=== PATIENT | female | born 1945 | race Caucasian/White ===

== ENCOUNTER 2023-09-20 09:04 | Outpatient (CLI) | payer MEDICARE, BC, SELFPAY ==
--- NOTE | 2023-09-20 09:15 | CRLHL7_ITS ---
For Patients: As a result of the Century Cures Act, medical imaging exams and procedure reports are released immediately into your electronic medical record. You may view this report before your referring provider. If you have questions, please contact your health care provider. INDICATION: Shoulder pain. COMPARISON: None. TECHNIQUE: Axial PD and T2, coronal PD, T2 and STIR and sagittal PD and T2 right shoulder sequences. Some motion degrades provided sequences. FINDINGS: Rotator cuff: Prominent intermediate signal tendinosis and bursal and intersubstance degenerative tearing supraspinatus with potential pinpoint full-thickness non retracted extension of complex tearing. Moderate intermediate signal tendinosis without tearing in the infraspinatus. Intact teres minor. Intact subscapularis. No rotator cuff muscle atrophy or edema. - Acromioclavicular joint and coracoacromial arch: Curved type 2 acromial undersurface with patent acromiohumeral distance. Moderate volume of fluid in the subacromial/subdeltoid bursa. [id number] degenerative arthrosis AC joint. No clavicular dislocation or fracture. Subcoracoid interval is patent. - Biceps labral complex: Labral signal and morphology looks within normal limits. Intact biceps anchor and appropriately located biceps tendon. Physiologic upper normal fluid in the tendon sheath. - Glenohumeral joint: Anatomic alignment. Shallow grade 2 chondromalacia. No secondary degenerative change. Upper normal physiologic fluid in the joint. No capsulitis, intra-articular body or significant synovitis. Some minor strandy synovitis in the subscapular recess. - Bones and soft tissues: Deltoid bulk and signal is normal. No fracture or bone lesion. Neutral glenoid version with normal morphology and good bone quality. Visualized axilla is clear. IMPRESSION: 1. Prominent tendinopathy and non retracted probably up to full-thickness complex degenerative tearing supraspinatus. Moderate tendinosis infraspinatus. 2. Subacromial/subdeltoid bursitis. 3. Mild AC DJD. Dictated by Darion Hoffman MD @ 09/20/2023 4:03:25 PM (Electronically Signed)
== END 2023-09-20 09:05 | disposition home or self-care (01) ==
PROVIDERS: PCP Family Medicine; Visit Provider Orthopaedic Surgery
DX: M25.511 Pain in right shoulder (principal); M75.51 Bursitis of right shoulder; M19.011 Primary osteoarthritis, right shoulder; M75.101 Unspecified rotator cuff tear or rupture of right shoulder, not specified as traumatic
CPT/HCPCS: 73221

== ENCOUNTER 2023-10-11 15:00 | Outpatient (RCR) | payer MEDICARE, BC, SELFPAY | END 2024-02-08 23:59 | disposition home or self-care (01) | PROVIDERS: PCP Family Medicine; Visit Provider Orthopaedic Surgery | DX: Z48.89 Encounter for other specified surgical aftercare (principal); Z51.89 Encounter for other specified aftercare | CPT/HCPCS: 97110; 97140; 97165; X5282 ==

== ENCOUNTER 2024-02-25 10:13 | Emergency (ER) | payer MEDICARE, BC, SELFPAY ==
[2024-02-25] VITALS (14 sets, daily range): BP systolic 107–176; BP diastolic 42–78; PULSE 39–53; RESP 12–18; TEMP 36.3; O2SAT 88–100; BMI 27.7
--- NOTE | 2024-02-25 10:57 | ED.GENADULT ---
HPI - General Adult General Date Seen: 02/25/24 Chief complaint: Abdominal Pain Stated complaint: poss bladder infection Time Seen by Provider: 02/25/24 10:21 Source: patient, RN notes reviewed and old records reviewed Mode of arrival: ambulatory Limitations: no limitations History of Present Illness HPI narrative: The patient is a 78-year-old woman here with her for evaluation of possible urinary tract infection. She notes that she was awakened this morning with a burning sensation in her labia. She has since developed right lower quadrant pain, nausea and has vomited once at home, had dry heaves here. The abdominal pain has gradually worsened. She actually does not report dysuria. She does not have flank pain. Denies history of hematuria or kidney stones. She had a meningioma resected a month ago and has some persistent diplopia which is unchanged. She is on iron replacement which cause some constipation so she takes stool softeners. She says her stools are soft to the point of almost diarrhea, but she does go regularly. Denies bloody stools. No abdominal surgeries aside from C-sections. She does not smoke or drink. Denies allergies. Medications reviewed. Related Data Home Medications Medication Instructions Recorded Confirmed ferrous gluconate 324 mg (38 mg 324 mg PO DAILY 02/25/24 02/25/24 iron) tablet lacosamide 100 mg tablet 100 mg PO BID 02/25/24 02/25/24 levetiracetam 750 mg tablet 1,500 mg PO BID 02/25/24 02/25/24 sennosides 8.6 mg tablet (senna) 8.6 mg PO BID 02/25/24 02/25/24 Allergies Allergy/AdvReac Type Severity Reaction Status Date / Time No Known Drug Allergies Allergy Verified 02/25/24 12:09 Review of Systems Status of ROS: Reports: 10 or more systems reviewed and unremarkable except as noted in History and below [facility] Social History Non-prescribed substance use: denies use Exam Narrative: Exam Narrative: Vital signs as noted above. In general, an alert, nontoxic woman. She looks uncomfortable. Head: Normocephalic, atraumatic. Healed incision, hair is not completely grown back. Eyes: Pupils are equal reactive. Conjunctivae are normal. ENT: Mucous membranes are moist. Neck: Supple without lymphadenopathy. Heart: Regular rate and rhythm. No murmur or rub. Lungs: Clear bilaterally. No increased work of breathing, crackles or wheezes. Abdomen: Soft, nondistended. Focal right lower quadrant and right mid quadrant tenderness without rebound guarding or read it the. No CVA tenderness Extremities: Well perfused. No edema. No calf tenderness. Pulses intact. Neurologic: Patient is alert and oriented to person and place. Speech is fluent. Face is symmetric. Moves all extremities equally. Affect: Normal. Skin: Warm and dry. Well perfused. Const: Vital Signs, click to edit/add: Vital Signs - 24 hr 02/25/24 10:29 02/25/24 11:19 02/25/24 11:30 Temperature 97.3 F L Pulse Rate 39 L 46 L Pulse Rate [Pulse Oximeter] 45 L Respiratory Rate 18 12 Blood Pressure Blood Pressure [Ri ght Upper Arm] 176/78 H Pulse Oximetry 99 100 100 Oxygen Delivery Me thod Room Air Nasal Cannula Oxygen Flow Rate 2 2 02/25/24 11:45 02/25/24 12:07 02/25/24 12:08 Temperature Pulse Rate 50 L Pulse Rate [Pulse Oximeter] Respiratory Rate Blood Pressure Blood Pressure [Ri ght Upper Arm] Pulse Oximetry 98 88 Oxygen Delivery Me thod Room Air Nasal Cannula Oxygen Flow Rate 2 2 02/25/24 12:12 02/25/24 12:15 02/25/24 12:30 Temperature Pulse Rate 51 L 43 L 47 L Pulse Rate [Pulse Oximeter] Respiratory Rate Blood Pressure Blood Pressure [Ri ght Upper Arm] Pulse Oximetry 93 100 100 Oxygen Delivery Me thod Oxygen Flow Rate 2 2 2 02/25/24 12:45 02/25/24 12:48 02/25/24 12:49 Temperature Pulse Rate 48 L 53 L 48 L Pulse Rate [Pulse Oximeter] Respiratory Rate Blood Pressure 111/42 L Blood Pressure [Ri ght Upper Arm] Pulse Oximetry 96 99 99 Oxygen Delivery Me thod Oxygen Flow Rate 1 02/25/24 13:00 02/25/24 13:01 02/25/24 13:15 Temperature Pulse Rate 48 L 44 L 44 L Pulse Rate [Pulse Oximeter] Respiratory Rate Blood Pressure 107/42 L Blood Pressure [Ri ght Upper Arm] Pulse Oximetry 97 99 98 Oxygen Delivery Me thod Room Air Room Air Oxygen Flow Rate Documenting provider has reviewed patient's vital signs: yes Course Course ED Course: Patient presents with some labial pain without dysuria, right lower quadrant pain, vomiting. Vital signs here show her to be afebrile, she is bradycardic, hypertensive. Diagnostic considerations include kidney stone, urinary tract infection, pyelonephritis, appendicitis, diverticulitis, bowel obstruction, cholecystitis, biliary colic, pancreatitis among others. She does have abdominal tenderness, more so than I would generally expect for kidney stone, plan will be to place an IV, give 4 mg of morphine, 4 mg of Zofran for pain and nausea. Normal saline infusion. If she has significant isolated hematuria on UA, I think a noncontrast CT would be reasonable, otherwise, CT with contrast will be ordered. Labs pending. UA was entirely negative, I elected to do CT scan with contrast as result. Labs notable for normal white blood cell count, hemoglobin of 11.8, normal metabolic panel, creatinine of 0.6, lactate 0.8. CRP less than 0.5, normal LFTs and lipase. CT scan read by radiology as follows:FINDINGS: Lower chest: The heart is enlarged. 6 millimeter left lower lobe pulmonary nodule on 12/30. Basilar atelectasis. Liver: Normal in size and attenuation. No suspicious masses. Gallbladder and bile ducts: No stones or inflammation. No biliary dilatation. Pancreas: Unremarkable. No mass or inflammation. Spleen: Normal in size. No masses. Adrenal glands: Normal in size. No nodules. Kidneys: Numerous too small to characterize tiny low-attenuation lesions kidneys nonobstructing bilateral renal calculi. No hydronephrosis on left. There is mild right hydronephrosis urothelial thickening with mild dilatation of the right ureter. There is a slight soft tissue density near the region of the right UVJ with also a punctate density which may represent a small stone however a soft tissue process is not completely excluded. This is seen on 12/22 25 and GI tract: Large amount of stool in the colon diverticulosis normal appendix. Vasculature: Abdominal aorta is normal in caliber. Lymph nodes: No lymphadenopathy. Peritoneum/Abdominal Wall: Unremarkable. No sign of mass or infiltration. No free air or significant free fluid. Pelvis: Unremarkable. No pelvic masses. Bones: Unremarkable for age. IMPRESSION: 1. Mild right hydronephrosis with urothelial thickening. Near the region of the right UVJ is a small soft tissue density and also possibly a punctate calcification potentially this could be related to a subtle stone however a soft tissue process is not completely excluded consider urology consultation. I did speak briefly with Urology on-call through [facility], he felt that outpatient follow-up for this would be reasonable. Will have her strain urine, maintain hydration. Tylenol 3 times daily, I am prescribing oxycodone #10. As well as Zofran through [facility]. At this time she is feeling well, there is no evidence of urinary tract infection, pain is controlled. Outpatient management unless she develops new symptoms such as fever, vomiting, severe uncontrolled pain at which time she should return to the ER. Given the phone number for [facility]. Vital Signs Vital signs: Initial Vital Signs Temperature 97.3 F L 02/25/24 10:29 Temperature Source Temporal Artery Scan 02/25/24 10:29 Pulse Rate 45 L 02/25/24 10:29 Respiratory Rate 18 02/25/24 10:29 Blood Pressure 176/78 H 02/25/24 10:29 Blood Pressure Mean 110 H 02/25/24 10:29 Pulse Oximetry 99 02/25/24 10:29 Oxygen Delivery Method Room Air 02/25/24 10:29 Vital Signs Temperature 97.3 F L 02/25/24 10:29 Pulse Rate 45 L 02/25/24 10:29 Respiratory Rate 18 02/25/24 10:29 Blood Pressure 176/78 H 02/25/24 10:29 Pulse Oximetry 99 02/25/24 10:29 Oxygen Delivery Method Room Air 02/25/24 10:29 Temperature 97.3 F L 02/25/24 10:29 Pulse Rate 44 L 02/25/24 13:15 Respiratory Rate 12 02/25/24 11:19 Blood Pressure 107/42 L 02/25/24 13:01 Pulse Oximetry 98 02/25/24 13:15 Oxygen Delivery Method Room Air 02/25/24 13:15 Oxygen Flow Rate 1 02/25/24 12:49 Medications Administered Medications: Discontinued Medications Generic Name Dose Route Start Last Admin Trade Name Freq PRN Reason Stop Dose Admin Hydromorphone HCl 0.5 mg 02/25/24 11:37 02/25/24 12:19 Hydromorphone 0.5 Mg/0.5 Ml Inj IVP 02/25/24 11:38 0.5 mg ONCE ONE Administration Sodium Chloride 1,000 mls @ 1,000 mls/hr 02/25/24 10:45 02/25/24 12:09 0.9 % Sodium Chloride 1000 Ml IV 02/25/24 11:44 Infused .Q1H LAURA Infusion Morphine Sulfate 4 mg 02/25/24 10:43 02/25/24 11:09 Morphine 4 Mg/Ml Inj IVP 02/25/24 10:44 4 mg ONCE ONE Administration Ondansetron HCl 4 mg 02/25/24 10:43 02/25/24 11:09 Ondansetron 2 Mg/Ml Inj IVP 02/25/24 10:44 4 mg ONCE ONE Administration Medical Decision Making Lab Data Labs: Lab Results 02/25/24 02/25/24 02/25/24 Range/Units 10:45 11:05 13:23 WBC 9.38 (4.50-11.00) K/uL RBC 3.81 L (4.00-5.20) m/uL Hgb 11.8 L (12.0-16.0) gm/dL Hct 36.8 (33.0-51.0) % MCV 97 (80-100) fL MCH 31 (26-34) pg MCHC 32 (32-36) gm/dL RDW Coeff of Alia 14.1 (11.5-15.5) % Plt Count 258 (140-440) K/uL Neut % (Auto) 64.1 (42.0-72.0) % Lymph % (Auto) 28.8 (20-44) % Faulkner % (Auto) 6.5 (0.0-11.0) % Eos % (Auto) 0.1 (0.0-7.0) % Baso % (Auto) 0.4 (0.0-3.0) % Neut # (Auto) 6.01 (1.7-7.0) K/uL Lymph # (Auto) 2.70 (0.90-2.90) K/uL Faulkner # (Auto) 0.60 (0.00-0.90) K/UL Eos # (Auto) 0.01 (0.00-0.50) K/uL Baso # (Auto) 0.04 (0.00-0.30) K/uL Abs Immat Gran (auto) 0.01 (0.00-0.30) K/uL Imm/Tot Granulo (auto) 0.1 % Sodium 138 (135-149) mmol/L Potassium 3.9 (3.6-5.1) mmol/L Chloride 107 (96-114) mmol/L Carbon Dioxide 24 (20-32) mmol/L Anion Gap 7 (7-15) mEq/L BUN 12 (7-30) mg/dL Creatinine 0.6 (0.5-1.5) mg/dL Estimated Creat Clear 33.30 Estimated GFR 92 ml/min Glucose 124 H (60-115) mg/dL Lactate 2.2 H 0.8 (0.5-1.9) mmol/L Calcium 11.1 H (8.4-10.6) mg/dL Total Bilirubin 0.3 (0.1-1.5) mg/dL Direct Bilirubin 0.0 (0.0-0.5) mg/dL AST 25 (12-35) U/L ALT 20 (4-35) U/L Alkaline Phosphatase 103 (40-150) U/L C-Reactive Protein < 0.5 L (0.5-1.0) mg/dL Total Protein 7.3 (6.0-8.3) g/dL Albumin 4.0 (3.3-5.0) g/dL Lipase 65 (23-300) U/L Urine Color Yellow (Yellow) Urine Appearance Cloudy A (Clear) Urine pH 8.5 (5.0-8.5) Ur Specific Perry 1.020 (1.000-1.030) Urine Protein Negative (Negative) Urine Glucose (UA) Negative (Negative) Urine Ketones Negative (Negative) Urine Blood Negative (Negative) Urine Nitrite Negative (Negative) Urine Bilirubin Negative (Negative) Urine Urobilinogen 0.2 (0.2-1.0) Ur Leukocyte Esterase Negative (Negative) Urine RBC 0-2 (0-2) Urine WBC 0-2 (0-5) Ur Squamous Epith Cells Few (None-Few) Amorphous Sediment Many A (None) Urine Bacteria None (None) Discharge Plan Discharge Clinical Impression: Hydronephrosis, Bradycardia Patient Disposition: Home, Self-Care Condition: Improved Instructions: Bradycardia (ED), Hydronephrosis (ED) Additional Instructions: Your CT scan shows evidence of some blockage of the right ureter, the tube that connects the kidney to the bladder. I think this is the cause of your pain. Your labs are normal, there is no evidence of urinary tract infection. You do have tiny stones in both kidneys which at this point are not causing any symptoms. The blockage of you ureter may potentially be due to a tiny stone, but a soft tissue process is not ruled out at this time. I have reviewed this with Urology, and they recommend follow-up with them as an outpatient. [phone] to schedule. In addition, your heart rate is somewhat slow here. Please follow-up with your primary doctor in the next couple weeks for recheck. If at any time you have symptoms of lightheadedness or fainting, shortness of breath, chest pain, return for re-evaluation. If you have severe uncontrolled pain, new symptoms such as fever, chills, uncontrolled vomiting, you should likewise return to the ER. Otherwise, Tylenol 1000 mg 3 times daily. Oxycodone if needed for more severe pain, Zofran if needed for nausea or vomiting. Prescriptions: No Action levetiracetam 750 mg tablet 1,500 mg PO BID lacosamide 100 mg tablet 100 mg PO BID sennosides [senna] 8.6 mg tablet 8.6 mg PO BID ferrous gluconate 324 mg (38 mg iron) tablet 324 mg PO DAILY Follow Up/Referrals: Dipti Pulliam MD [Primary Care Provider] - Stand Alone Forms: [employer] Info Instructions
[2024-02-25] MEDS: MORPHINE 4 MG/ML INJ IVP (11:09)
[2024-02-25] MEDS: ONDANSETRON 2 MG/ML inj 4 MG IVP (11:09)
[2024-02-25] MEDS: 0.9 % SODIUM CHLORIDE 1000 ml 1,000 ML IV (11:09)
[2024-02-25 11:11] LABS: Appearance Urine Cloudy (Clear); Bilirubin Urine Negative (Negative); Blood Urine Negative (Negative); Color Urine Yellow (Yellow); Glucose Urine Negative (Negative); Ketones Urine Negative (Negative); Leukocyte Esterase Urine Negative (Negative); Nitrite Urine Negative (Negative); Protein Urine Negative (Negative); Urobilinogen Urine 0.2 (0.2-1.0); pH Urine 8.5 (5.0-8.5)
[2024-02-25 11:19] LABS: Lactate Sepsis w/Reflex* 2.2 mmol/L (0.5-1.9)
[2024-02-25 11:24] LABS: Basophils Absolute Auto 0.04 K/uL (0.00-0.30); Basophils Percent Auto 0.4 % (0.0-3.0); Eosinophils Absolute Auto 0.01 K/uL (0.00-0.50); Eosinophils Percent Auto 0.1 % (0.0-7.0); Hematocrit 36.8 % (33.0-51.0); Hemoglobin* 11.8 gm/dL (12.0-16.0); Immature Granulocytes Abs Auto 0.01 K/uL (0.00-0.30); Immature Granulocytes Pct Auto 0.1 %; Lymphocytes Percent Auto 28.8 % (20-44); Mean Corpuscular HGB Conc 32 gm/dL (32-36); Mean Corpuscular Hemoglobin 31 pg (26-34); Mean Corpuscular Volume 97 fL (80-100); Monocytes Percent Auto 6.5 % (0.0-11.0); Neutrophils Absolute Auto 6.01 K/uL (1.7-7.0); Neutrophils Percent Auto 64.1 % (42.0-72.0); Platelet Count* 258 K/uL (140-440); RDW Coefficient of Variation % 14.1 % (11.5-15.5); Red Blood Count 3.81 m/uL (4.00-5.20); White Blood Count* 9.38 K/uL (4.50-11.00)
--- NOTE | 2024-02-25 11:27 | CT_ITS ---
Patient: AMANDA WALTER Facility:?[facility] Patient ID:?[id number] Site Patient ID:?[id number]. Site :?[id number] Study:?CT-Abdomen/Pelvis with contrast-02/25/2024 12:14:09 PM Ordering Physician:Lizet Montero Final Report: INDICATION: Right lower quadrant pain TECHNIQUE: CT abdomen and pelvis with 69 mL of Isovue 370 COMPARISON: None. FINDINGS: Lower chest: The heart is enlarged. 6 millimeter left lower lobe pulmonary nodule on 12/30. Basilar atelectasis. Liver: Normal in size and attenuation. No suspicious masses. Gallbladder and bile ducts: No stones or inflammation. No biliary dilatation. Pancreas: Unremarkable. No mass or inflammation. Spleen: Normal in size. No masses. Adrenal glands: Normal in size. No nodules. Kidneys: Numerous too small to characterize tiny low-attenuation lesions kidneys nonobstructing bilateral renal calculi. No hydronephrosis on left. There is mild right hydronephrosis urothelial thickening with mild dilatation of the right ureter. There is a slight soft tissue density near the region of the right UVJ with also a punctate density which may represent a small stone however a soft tissue process is not completely excluded. This is seen on 12/22 25 and GI tract: Large amount of stool in the colon diverticulosis normal appendix. Vasculature: Abdominal aorta is normal in caliber. Lymph nodes: No lymphadenopathy. Peritoneum/Abdominal Wall: Unremarkable. No sign of mass or infiltration. No free air or significant free fluid. Pelvis: Unremarkable. No pelvic masses. Bones: Unremarkable for age. IMPRESSION: 1. Mild right hydronephrosis with urothelial thickening. Near the region of the right UVJ is a small soft tissue density and also possibly a punctate calcification potentially this could be related to a subtle stone however a soft tissue process is not completely excluded consider urology consultation. Please note that all CT scans at this facility use dose modulation, iterative reconstruction, and/or weight-based dosing when appropriate to reduce radiation dose to as low as reasonably achievable. Dictated by Maryjane Moran MD @ 02/25/2024 1:15:30 PM Signed by:?Maryjane Moran MD @02/25/2024 1:46:54 PM (Electronic Signature)
[2024-02-25 11:30] LABS: Slide Review Reflex No
[2024-02-25 11:39] LABS: Chloride* 107 mmol/L (96-114)
[2024-02-25 11:40] LABS: Potassium* 3.9 mmol/L (3.6-5.1); Sodium* 138 mmol/L (135-149)
[2024-02-25 11:42] LABS: Creatinine* 0.6 mg/dL (0.5-1.5); Estimated Glomerular Filt Rate 92 ml/min
[2024-02-25 11:43] LABS: Amorphous Sediment Urine Many; RBC Urine 0-2 (0-2); Squamous Epithelial Cell Urine Few (None-Few); WBC Urine 0-2 (0-5)
[2024-02-25 11:43] LABS: Alanine Aminotransferase* 20 U/L (4-35); Alkaline Phosphatase* 103 U/L (40-150); Anion Gap 7 mEq/L (7-15); Aspartate Amino Transferase* 25 U/L (12-35); Bilirubin Total* 0.3 mg/dL (0.1-1.5); Blood Urea Nitrogen* 12 mg/dL (7-30); Calcium* 11.1 mg/dL (8.4-10.6); Carbon Dioxide* 24 mmol/L (20-32); Glucose* 124 mg/dL (60-115); Lipase* 65 U/L (23-300); Total Protein* 7.3 g/dL (6.0-8.3)
[2024-02-25 11:51] LABS: C Reactive Protein* < 0.5 mg/dL (0.5-1.0)
[2024-02-25] MEDS: HYDROmorphone 0.5 mg/0.5 ml inj IVP (12:19)
[2024-02-25 13:44] LABS: Lactate Sepsis 2 Hour 0.8 mmol/L (0.5-1.9)
== END 2024-02-25 14:57 | disposition home or self-care (01) ==
PROVIDERS: Emergency Provider Emergency Medicine; PCP Family Medicine
DX: N13.30 Unspecified hydronephrosis (principal); R00.1 Bradycardia, unspecified
CPT/HCPCS: 36415; 74177; 80048; 80076; 81001; 83605; 83690; 85025; 86140; 93005; 96361; 96374; 96375; 99284; 99285; J1170; J2270; J2405; J7030; Q9967

== ENCOUNTER 2024-10-28 11:15 | Emergency (ER) | payer MEDICARE, BC, SELFPAY ==
[2024-10-28 11:50] VITALS: BP 149/79; PULSE 72; RESP 18; TEMP 36.4; O2SAT 98; BMI 25.8
--- NOTE | 2024-10-28 12:11 | CRLHL7_ITS ---
For Patients: As a result of the Cures Act, medical imaging exams and procedure reports are released immediately into your electronic medical record. You may view this report before your referring provider. If you have questions, please contact your health care provider. INDICATION: Cough TECHNIQUE: Chest radiograph 2 views COMPARISON: None FINDINGS: Mediastinum: The mediastinum is normal in appearance. Mild cardiomegaly is noted. Lung: Both lungs are unremarkable in appearance. No sign of pleural effusion seen. No pneumothorax is identified. Bone and Soft tissue: Mild dextroscoliosis of the inferior thoracic spine is noted. IMPRESSION: 1. Mild cardiomegaly is noted. Dictated by Vaibhav Arroyo MD @ 10/28/2024 1:23:28 PM Dictated by: Vaibhav Arroyo MD @ 10/28/2024 13:23:33 (Electronically Signed)
--- NOTE | 2024-10-28 12:16 | ED_ITS ---
HPI - General Adult General Date Seen: 10/28/24 Chief complaint: Cough Stated complaint: Cold symptoms not improving Time Seen by Provider: 10/28/24 11:49 Source: patient Mode of arrival: ambulatory Limitations: no limitations History of Present Illness HPI narrative: Patient is a 79-year-old woman who presents with 2 weeks of cold symptoms which seem to be getting worse rather than better. She has not had a fever that she knows of, she has had congestion, nasal drainage which is now green, and very persistent bothersome cough. She has not had shortness of breath or chest pain. At this point, the cough is what is bothering her most, she says this illness is different than anything she remembers having previously, she keeps thinking it will get better but it just does not seem to be improving. She has not had significant headache. 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 These have not caused other significant problems. She also had a parathyroid tumor removed and believes that this issue is resolved. She does not smoke, denies any underlying asthma or COPD. COVID test at home was negative. She says all of her immunizations are up-to-date, no ill contacts that she is aware of. No unexpected weight loss or night sweats. Related Data Home Medications ?Medication ?Instructions ?Recorded ?Confirmed ferrous gluconate 324 mg (38 mg 324 mg PO DAILY 02/25/24 10/28/24 iron) tablet lacosamide 100 mg tablet 100 mg PO BID 02/25/24 02/25/24 levetiracetam 750 mg tablet 1,500 mg PO BID 02/25/24 10/28/24 sennosides 8.6 mg tablet (senna) 8.6 mg PO BID 02/25/24 10/28/24 Allergies Allergy/AdvReac Type Severity Reaction Status Date / Time No Known Drug Allergies Allergy Verified 10/28/24 11:54 Review of Systems Status of ROS: Reports: 10 or more systems reviewed and unremarkable except as noted in History and below [facility] Social History Smoking Status: Never smoker How often do you have a drink containing alcohol: never AUDIT-C Alcohol total score: 0 Non-prescribed substance use: denies use Exam Narrative: Exam Narrative: Vital signs reviewed In general, alert, nontoxic elderly woman. Breathing comfortably. Head: Normocephalic, atraumatic. Eyes: Sclera clear. Pupils equal and reactive. ENT: Mucous membranes moist. Throat is normal. Nares clear. Neck: Supple without adenopathy. Heart: Regular rate and rhythm without murmur. Lungs: Clear. No increased work of breathing, crackles or wheezes. Abdomen: Soft, nontender to palpation. Extremities: Well perfused, pulses intact. No significant edema. Neurologic: Alert, conversant. Speech fluent, face symmetric. Moves all extremities equally. Skin: Warm, dry well perfused. Affect: Normal. Const: Vital Signs, click to edit/add: Vital Signs - 24 hr 10/28/24 11:50 10/28/24 13:33 Temperature 97.6 F 97.6 F Pulse Rate [Pulse Oximeter] 72 72 Respiratory Rate 18 18 Blood Pressure [Ri ght Upper Arm] 149/79 H 149/79 H Pulse Oximetry 98 Oxygen Delivery Me thod Room Air Documenting provider has reviewed patient's vital signs: yes Course Course ED Course: I checked some basic labs, her white blood cell count is normal at 8.9, hemoglobin just very mildly low at 11.8. This is stable compared to previous. She has a very mild monocytosis, otherwise diff is unremarkable. Metabolic panel is normal. I did send pertusses testing which is pending. Other diagnostic considerations would include pneumonia, which I do not see evidence of on x-ray or exam, sinusitis, viral infection. I do not see any evidence of a more serious systemic illness or hematologic process. For now, recommended that we try a trial of Augmentin for possible sinusitis. If pertussis is positive then I would recommend that we switch her antibiotic. If she is not feeling improved over the next week, follow-up with primary care for recheck. Return to the ER at any time for significant worsening. Vital Signs Vital signs: Initial Vital Signs Temperature 97.6 F 10/28/24 11:50 Temperature Source Temporal Artery Scan 10/28/24 11:50 Pulse Rate 72 10/28/24 11:50 Respiratory Rate 18 10/28/24 11:50 Blood Pressure 149/79 H 10/28/24 11:50 Blood Pressure Mean 102 10/28/24 11:50 Pulse Oximetry 98 10/28/24 11:50 Oxygen Delivery Method Room Air 10/28/24 11:50 Vital Signs Temperature 97.6 F 10/28/24 11:50 Pulse Rate 72 10/28/24 11:50 Respiratory Rate 18 10/28/24 11:50 Blood Pressure 149/79 H 10/28/24 11:50 Pulse Oximetry 98 10/28/24 11:50 Oxygen Delivery Method Room Air 10/28/24 11:50 Temperature 97.6 F 10/28/24 13:33 Pulse Rate 72 10/28/24 13:33 Respiratory Rate 18 10/28/24 13:33 Blood Pressure 149/79 H 10/28/24 13:33 Pulse Oximetry 98 10/28/24 11:50 Oxygen Delivery Method Room Air 10/28/24 11:50 Medical Decision Making Lab Data Labs: Lab Results 10/28/24 Range/Units 12:37 WBC 8.86 (4.50-11.00) K/uL RBC 3.71 L (4.00-5.20) m/uL Hgb 11.8 L (12.0-16.0) gm/dL Hct 36.7 (33.0-51.0) % MCV 99 (80-100) fL MCH 32 (26-34) pg MCHC 32 (32-36) gm/dL RDW Coeff of Alia 12.8 (11.5-15.5) % Plt Count 283 (140-440) K/uL Neut % (Auto) 57.1 (42.0-72.0) % Lymph % (Auto) 29.7 (20-44) % [place] % (Auto) 12.0 H (0.0-11.0) % Eos % (Auto) 0.6 (0.0-7.0) % Baso % (Auto) 0.5 (0.0-3.0) % Neut # (Auto) 5.07 (1.7-7.0) K/uL Lymph # (Auto) 2.63 (0.90-2.90) K/uL [place] # (Auto) 1.10 H (0.00-0.90) K/UL Eos # (Auto) 0.05 (0.00-0.50) K/uL Baso # (Auto) 0.04 (0.00-0.30) K/uL Abs Immat Gran (auto) 0.01 (0.00-0.30) K/uL Imm/Tot Granulo (auto) 0.1 % Sodium 139 (135-149) mmol/L Potassium 3.7 (3.6-5.1) mmol/L Chloride 108 (96-114) mmol/L Carbon Dioxide 26 (20-32) mmol/L Anion Gap 5 L (7-15) mEq/L BUN 13 (7-30) mg/dL Creatinine 0.6 (0.5-1.5) mg/dL Estimated Creat Clear 41.05 Estimated GFR 91 ml/min Glucose 95 (60-115) mg/dL Calcium 8.8 (8.4-10.6) mg/dL Imaging Data Chest x-ray: Attestation: I have reviewed the pertinent imaging results. Radiologist's impression: Patient: AMANDA WALTER Facility: [facility] Site . Site : 1945 Study: XRay-Chest 2V-10/28/2024 12:20:56 PM Ordering Physician: Damian Hinds Final Report: INDICATION: Cough TECHNIQUE: Chest radiograph 2 views COMPARISON: None FINDINGS: Mediastinum: The mediastinum is normal in appearance. Mild cardiomegaly is noted. Lung: Both lungs are unremarkable in appearance. No sign of pleural effusion seen. No pneumothorax is identified. Bone and Soft tissue: Mild dextroscoliosis of the inferior thoracic spine is noted. IMPRESSION: 1. Mild cardiomegaly is noted. Dictated by Vaibhav Arroyo MD @ 10/28/2024 1:23:28 PM Discharge Plan Discharge Clinical Impression: Sinusitis Patient Disposition: Home, Self-Care Condition: Stable Instructions: Sinusitis (ED) Additional Instructions: Augmentin as prescribed. This is treatment for sinusitis. We did do protest this testing, and if this is positive we would change to a different antibiotic. If you are not improving over the next week or 2, please follow-up with your primary doctor. Return to the ER at any time for worsening. Prescriptions: No Action levetiracetam 750 mg tablet 1,500 mg PO BID lacosamide 100 mg tablet 100 mg PO BID sennosides [senna] 8.6 mg tablet 8.6 mg PO BID ferrous gluconate 324 mg (38 mg iron) tablet 324 mg PO DAILY Follow Up/Referrals: Dipti Pulliam MD [Primary Care Provider] - Stand Alone Forms: [employer] Info Instructions
[2024-10-28 12:44] LABS: Basophils Absolute Auto 0.04 K/uL (0.00-0.30); Basophils Percent Auto 0.5 % (0.0-3.0); Eosinophils Absolute Auto 0.05 K/uL (0.00-0.50); Eosinophils Percent Auto 0.6 % (0.0-7.0); Hematocrit 36.7 % (33.0-51.0); Hemoglobin* 11.8 gm/dL (12.0-16.0); Immature Granulocytes Abs Auto 0.01 K/uL (0.00-0.30); Immature Granulocytes Pct Auto 0.1 %; Lymphocytes Absolute Auto 2.63 K/uL (0.90-2.90); Lymphocytes Percent Auto 29.7 % (20-44); Mean Corpuscular HGB Conc 32 gm/dL (32-36); Mean Corpuscular Hemoglobin 32 pg (26-34); Mean Corpuscular Volume 99 fL (80-100); Neutrophils Absolute Auto 5.07 K/uL (1.7-7.0); Neutrophils Percent Auto 57.1 % (42.0-72.0); Platelet Count* 283 K/uL (140-440); RDW Coefficient of Variation % 12.8 % (11.5-15.5); Red Blood Count 3.71 m/uL (4.00-5.20); White Blood Count* 8.86 K/uL (4.50-11.00)
[2024-10-28 12:46] LABS: Slide Review Reflex No
[2024-10-28 12:59] LABS: Chloride* 108 mmol/L (96-114)
[2024-10-28 13:00] LABS: Potassium* 3.7 mmol/L (3.6-5.1); Sodium* 139 mmol/L (135-149)
[2024-10-28 13:02] LABS: Anion Gap 5 mEq/L (7-15); Carbon Dioxide* 26 mmol/L (20-32); Creatinine* 0.6 mg/dL (0.5-1.5); Est. Creatinine Clearance* 41.05; Estimated Glomerular Filt Rate 91 ml/min
[2024-10-28 13:03] LABS: Blood Urea Nitrogen* 13 mg/dL (7-30); Calcium* 8.8 mg/dL (8.4-10.6); Glucose* 95 mg/dL (60-115)
[2024-10-28 13:33] VITALS: BP 149/79; PULSE 72; RESP 18; TEMP 36.4
[2024-11-01 08:12] LABS: B. pertussis/parapertus Source Not Provided; Bordetella parapertussis PCR Not Detected; Bordetella pertussis by PCR Not Detected
== END 2024-10-28 13:34 | disposition home or self-care (01) ==
PROVIDERS: Emergency Provider Emergency Medicine; PCP Family Medicine
DX: J32.9 Chronic sinusitis, unspecified (principal)
CPT/HCPCS: 36415; 71046; 80048; 85025; 99283; 99284

== ENCOUNTER 2025-08-17 12:37 | Emergency (ER) | payer MEDICARE, BC, SELFPAY ==
--- OUTSIDE RECORDS SUMMARY | 2025-07-16 12:15 | XMS_ITS | Encounter Summary ---
Author Organization [place] Address [address] [place] [address]. 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 Yes 12/21/2024 Within the past 12 months, h ave you been hit, slapped, kicked or otherwise physically hurt by someone? No 12/21/2024 Within the past 12 months, h ave you been humiliated or emotionally abused in other ways by your partner or ex-partner? No 12/21/2024 Comments No Sex and Gender Information Value Date Recorded Sex Assigned at Female 10/14/2019 7:59 PM ASSISTANT PROFESSOR OF ART Legal Sex Female 5:09 AM ASSISTANT PROFESSOR OF ART Gender Identity Female 10/14/2019 7:59 PM ASSISTANT PROFESSOR OF ART Sexual Orientation Straight 10/14/2019 7: 59 PM ASSISTANT PROFESSOR OF ART documented as of this encounter Progress Notes * Luciano Gu MA - 07/16/2025 12:15 PM CDT Meds taken 11:00 pm on 07/15/2025. Lab draw 12;12 pm. Luciano Gu CMA documented in this encounter Plan of Treatment Upcoming Encounters Date Type Department Care Team (Late st Contact Info) Description 09/24/2025 11:00 AM ASSISTANT PROFESSOR OF ART Ancillary Procedure [facility] MRI [address] [phone] Dragan Barrett MD [address] [place] [address] [phone] 09/24/2025 12:30 PM ASSISTANT PROFESSOR OF ART Office Visit [facility] [address] [phone] Dragan Barrett MD [address] [place] [address] [id number] 11/06/2025 3:30 PM ASSISTANT PROFESSOR OF ART Office [facility] [place] [facility] [address], [address] [place] [phone] Miller Barber MD [address] [facility] [address] [place] [address] documented as of this encounter Procedures Procedure Name Priority Date/Time Associated Diagnosis Comments LACOSAMIDE LEVEL Routine 07/16/2025 12:2 0 PM CDT 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 (H) KEPPRA (LEVETIRACETAM) LEVEL Routine 07/16/2025 12:20 PM CDT 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 (H) documented in this encounter Results * Keppra (Levetiracetam) Level (07/16/2025 12:20 PM CDT) Keppra (Levetiracetam) Level 29.1 10.0 - 40.0 g/mL 07/17/2025 2:37 AM CDT [facility] Blood STRUCTURE OF RIGHT UPPER LIMB / Unknown Venipuncture / Unknown 07/16/2025 12:20 PM CDT 07/16/2025 8:24 PM CDT us Miller Barber MD LAB - BLOOD ORDERABLES Renetta l Result [facility] [place] [facility] [address] [facility], [address] [place] [address] * Lacosamide Level (07/16/2025 12:20 PM CDT) Lacosamide 3.8 1.0 - 10.0 ug/mL 07/19/2025 12:15 AM CDT [facility] Comment: INTERPRETIVE INFORMATION: Lacosamide, Serum Therapeutic Range: 1.0 - 10.0 ug/mL Toxic: >=20.0 ug/mL Lacosamide is an anticonvulsant drug indicated for adjunctive therapy for partial-onset seizures. The therapeutic range is based on serum, predose (trough) draw collection at steady-state concentration. Adverse effects may include dizziness, fatigue, nausea, vomiting, blurred vision, and tremor. Performed By: [facility] [address] [place] [address] Outreach Worker: Kanu Blanchard MD, PhD CLIA Number: [id number] Blood STRUCTURE OF RIGHT UPPER LIMB / Unknown Venipuncture / Unknown 07/16/2025 12:20 PM CDT 07/16/2025 8:24 PM CDT Miller Barber MD LAB - BLOOD ORDERABLES Renetta l Result [facility] [address] [place] [address], 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) Localization-related (focal) (partial) epilepsy and epileptic syndromes with simple partial seizures, without mention of intractable epilepsy documented in this encounter Care Teams Forensic Science Technician Relationship Specialty Start Date End Date Heraclio Dipti PCP - General Family Practice 10/02/19 Hugo Schmitt MD [address] [place], [place] [id number] Ophthalmology 01/25/24 DarrenShanelle Rasheed MD [address] [facility] [address] [place], [place] [id number] Assigned Surgical Provider 01/13/25 Miller Barber MD [address] [facility] [address] [place], [place] [phone] Assigned Neuroscience Provider 06/12/25 documented as of this encounter
--- OUTSIDE RECORDS SUMMARY | 2025-07-16 12:30 | XMS_ITS | Encounter Summary ---
Author Organization [place] Address [address] [place] [address]. 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) Procedures EEG Video 3 Hour Continuous Monitoring EEG Miller Barber MD [address] [facility] [address] [place] [address] Phone: tel: fax: Referral ID Status Reason Start Date Expiration Date V isits Requested Visits Authorized [id number] Pending Review 05/22/2025 05/22/2026 1 1 Encounter Details Date Type Department Care Team (Latest Contact Info) Description 07/16/2025 12:30 PM CDT Ancillary Procedure [facility] EEG [address] [place] [phone] Miller Barber MD [address] [facility] [address] [place], [place] [phone] Localization-relate d focal epilepsy with simple partial [...] Sex Assigned at Female 10/14/2019 7:59 PM DIRECTOR OF GIFT PLANNING Legal Sex Female 5:09 AM DIRECTOR OF GIFT PLANNING Gender Identity Female 10/14/2019 7:59 PM DIRECTOR OF GIFT PLANNING Sexual Orientation Straight 10/14/2019 7: 59 PM DIRECTOR OF GIFT PLANNING documented as of this encounter Plan of Treatment Upcoming Encounters Date Type Department Care Team (Late st Contact Info) Description 09/24/2025 11:00 AM DIRECTOR OF GIFT PLANNING Ancillary Procedure [facility] MRI [address] [place] [address] Dragan Barrett MD [address] [place] [phone] 09/24/2025 12:30 PM DIRECTOR OF GIFT PLANNING Office Visit [facility] [address] [place] [address] Dragan Barrett MD [address] [place] [address] 11/06/2025 3:30 PM DIRECTOR OF GIFT PLANNING Office Visit [facility] [address], [address] [place] [phone] Miller Barber MD [address] [facility] [address] [place], [place] [phone] documented as of this encounter Procedures Procedure Name Priority Date/Time Associated Diagnosis Comments EEG VIDEO 3 HOUR CONTINUOUS MONITORING Routine 07/16/2025 3:45 PM CDT 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 (H) documented in this encounter Results * EEG Video 3 Hour Continuous Monitoring (07/16/2025 3:45 PM CDT) Narrative [facility] - 07/29/2025 10:19 AM CDT EEG Video 3 Hour Continuous Monitoring Result VIDEO EEG DATE: 07/16/2025 VIDEO EEG LOG: [id number] VIDEO EEG SOURCE FILE DURATION: 2 hours 51 minutes CLINICAL HISTORY: This diagnostic video-EEG monitoring procedure was performed in evaluation of encephalopathy and seizures following 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 The patient was reported to be receiving lacosamide 100 mg b.i.d., and levetiracetam 100 mg b.i.d., at the time of this recording. TECHNICAL SUMMARY: This continuous EEG monitoring procedure was performed with 25 scalp electrodes in 10-20 system placements, and additional scalp, precordial and other surface electrodes used for electrical referencing and artifact detection. A single channel of EKG was recorded for purposes of analyzing EKG artifacts in the EEG channels. Qualified technicians attached EEG electrodes, set up the study, monitored and reviewed EEG recordings and disconnected EEG electrodes as appropriate. Video monitoring was utilized and periodically reviewed by pathology technologist and the physician for electroclinical correlation. INTERICTAL EEG ACTIVITIES: During waking, there was a bilateral, approximately 9 Hz posterior dominant rhythm, which was attenuated on eye opening. Lower amplitude faster activities predominated in waking, with intermixture of generalized 4-8 Hz theta slowing. Drowsiness was manifested by predominance of centrally maximum semirhythmic theta slowing and dropout of the posterior dominant rhythm during deeper drowsiness. Bilateral sleep spindles were seen during slow wave sleep. 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 There was very frequent left frontotemporal polymorphic 2-4 Hz delta-theta slowing. There also were right frontotemporal polymorphic 2-4 Hz delta transients, at times in brief 1-2 second runs, rarely. INTERICTAL EPILEPTIFORM ABNORMALITIES: There were focal left frontotemporal sharp waves in isolation rarely, with F7-T3 electrode alexandrea. ICTAL RECORDINGS: No electrographic seizures and no paroxysmal behavioral events occurred during this procedure. SUMMARY OF VIDEO-EEG MONITORING: The interictal recording in waking, drowsiness and stage II sleep was abnormal, due to: 1) Generalized theta slowing during waking, indicating mild electrographic encephalopathy, 2) A left posterior temporal breach effect, consistent with the known skull defect, 3) Very frequent left frontotemporal delta-theta slowing, indicating focal neuronal dysfunction in this area, 4) Rare right frontotemporal delta-theta slowing, indicating milder focal neuronal dysfunction in this area, and 5) Rare left frontotemporal sharp waves, indicating an elevated risk of focal-onset seizures. No electrographic seizures and no paroxysmal behavioral events were recorded during the period of monitoring. Clinical correlation is recommended. 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) Localization-related (focal) (partial) epilepsy and epileptic syndromes with simple partial seizures, without mention of intractable epilepsy documented in this encounter Care Teams Liquified Natural Gas Specialist Relationship Specialty Start Date End Date Heraclio Dipti PCP - General Family Practice 10/02/19 Hugo Schmitt MD [address] [place] [address] Ophthalmology 01/25/24 Shanelle Jensen MD [address] [facility] [address] [place], [place] [address] Assigned Surgical Provider 01/13/25 Miller Barber MD [address] [facility] [address] [place], [place] [phone] Assigned Neuroscience Provider 06/12/25 documented as of this encounter
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
--- NOTE | 2025-08-17 13:09 | ED.GENADULT ---
HPI - General Adult General Chief complaint: Extremity Pain/Injury, Lower Stated complaint: hurt right knee Time Seen by Provider: 08/17/25 12:45 History of Present Illness HPI narrative: This 80-year-old female comes in reporting pain in her right knee that began upon awakening yesterday. She does not report any injury event or strenuous activity. She states that she kept walking on it throughout the day and now today her symptoms are worse. She has been using crutches for ambulating today. She does arrive with and effusion in her right knee. She has a history of focal seizures and had her Keppra increased a couple weeks ago. Related Data Home Medications ?Medication ?Instructions ?Recorded ?Confirmed ferrous gluconate 324 mg (38 mg 324 mg PO DAILY 02/25/24 10/28/24 iron) tablet lacosamide 100 mg tablet 100 mg PO BID 02/25/24 08/17/25 levetiracetam 750 mg tablet 1,500 mg PO BID 02/25/24 08/17/25 sennosides 8.6 mg tablet (senna) 8.6 mg PO BID 02/25/24 10/28/24 loratadine 10 mg tablet (Claritin) 10 mg PO DAILY 08/17/25 08/17/25 Previous Rx's ?Medication ?Instructions ?Recorded ketorolac 10 mg tablet 10 mg PO TID 5 days #15 tabs 08/17/25 Allergies Allergy/AdvReac Type Severity Reaction Status Date / Time No Known Drug Allergies Allergy Verified 08/17/25 13:14 Review of Systems Status of ROS: Reports: 10 or more systems reviewed and unremarkable except as noted in History and below Narrative: Constitutional: No fevers, no weight gain or loss. Eyes: No discharge. No vision changes. HENT: No congestion, no sore throat, no ear pain. Cardiovascular: No chest pain, no palpitations. Respiratory: No shortness of breath, no wheezes, no cough. Gastrointestinal: No abdominal pain, no vomiting, no diarrhea. Genitourinary: No dysuria, no hematuria. Musculoskeletal: Normal range of motion. Right knee pain as described above. Skin: No rashes, no pruritis. Neurological: No dizziness, weakness, sensory change, speech change. Endo/Heme/Allergies: No bruising or bleeding. No polydipsia. Pysch: no suicidality, no anxiety, no insomnia. All other systems reviewed and are negative. [facility] Social History Smoking Status: Never smoker How often do you have a drink containing alcohol: never AUDIT-C Alcohol total score: 0 Non-prescribed substance use: denies use Exam Narrative: Exam Narrative: Constitutional: Well-developed, well-nourished, no acute distress. HEENT: Normocephalic, atraumatic. Neck: Normal range of motion. Nontender. Supple. Heart: Regular. No murmurs. Normal rate. Intact distal pulses. Lungs: Clear to auscultation. No chest discomfort. No wheezes, rhonchi, or rales. Abdomen: Normal bowel sounds. Nontender. No rebound tenderness. Genitalia: Deferred. Back: No midline tenderness. Normal range of motion. Extremities: Right knee has an effusion. No ligament instability. She is able to raise her right leg up off the bed. Skin: Intact. No rash. Warm. No erythema or pallor. Neurologic: No altered sensation. No weakness. Alert and oriented. Psychiatric: No suicidality. No anxiety or depression. No insomnia. Nursing notes and vitals signs are reviewed. Const: Vital Signs, click to edit/add: Vital Signs - 24 hr 08/17/25 13:14 Temperature 97.9 F Pulse Rate [Pulse Oximeter] 63 Respiratory Rate 18 Blood Pressure [Ri ght Upper Arm] 124/64 Pulse Oximetry 99 Oxygen Delivery Me thod Room Air Course Vital Signs Vital signs: Initial Vital Signs Temperature 97.9 F 08/17/25 13:14 Temperature Source Temporal Artery Scan 08/17/25 13:14 Pulse Rate 63 08/17/25 13:14 Respiratory Rate 18 08/17/25 13:14 Blood Pressure 124/64 08/17/25 13:14 Blood Pressure Mean 84 08/17/25 13:14 Blood Pressure Position Sitting 08/17/25 13:14 Pulse Oximetry 99 08/17/25 13:14 Oxygen Delivery Method Room Air 08/17/25 13:14 Vital Signs Temperature 97.9 F 08/17/25 13:14 Pulse Rate 63 08/17/25 13:14 Respiratory Rate 18 08/17/25 13:14 Blood Pressure 124/64 08/17/25 13:14 Pulse Oximetry 99 08/17/25 13:14 Oxygen Delivery Method Room Air 08/17/25 13:14 Temperature 97.9 F 08/17/25 13:14 Pulse Rate 63 08/17/25 13:14 Respiratory Rate 18 08/17/25 13:14 Blood Pressure 124/64 08/17/25 13:14 Pulse Oximetry 99 08/17/25 13:14 Oxygen Delivery Method Room Air 08/17/25 13:14 Medical Decision Making MDM Narrative Medical decision making narrative: This patient comes in with pain and mild swelling of her right knee. She does not describe any injury event or strenuous activity to trigger this. She felt worse today and has been using crutches to assist in ambulating. I did obtain an x-ray of her right knee which shows no acute findings except for small amount of effusion. Her joint space appears to be rather well preserved. I advised her to continue to use crutches as needed and increase activity as tolerated. Her knee does not show any sign of instability on exam. I did provide a prescription for Toradol for pain relief. I advised her to follow-up with orthopedic clinic if not improving or worsening. Imaging Data XR R Knee: Radiologist's impression: 1. No acute osseous injuries are noted. 2. A trace knee effusion is present. Discharge Plan Discharge Clinical Impression: Acute knee pain Patient Disposition: Home, Self-Care Condition: Stable Additional Instructions: Use crutches as needed and increase activity as tolerated. Use Toradol also as needed and directed. Follow-up with orthopedic clinic if not improving or worsening. Prescriptions: New ketorolac 10 mg tablet 10 mg PO TID 5 Days Qty: 15 0RF No Action levetiracetam 750 mg tablet 1,500 mg PO BID lacosamide 100 mg tablet 100 mg PO BID sennosides [senna] 8.6 mg tablet 8.6 mg PO BID ferrous gluconate 324 mg (38 mg iron) tablet 324 mg PO DAILY loratadine [Claritin] 10 mg tablet 10 mg PO DAILY Follow Up/Referrals: Dipti Pulliam MD [Primary Care Provider, Family Practice] Stand Alone [facility] Info Instructions
[2025-08-17 13:14] VITALS: BP 124/64; PULSE 63; RESP 18; TEMP 36.6; O2SAT 99
--- NOTE | 2025-08-17 13:31 | CRLHL7_ITS ---
For Patients: As a result of the Cures Act, medical imaging exams and procedure reports are released immediately into your electronic medical record. You may view this report before your referring provider. If you have questions, please contact your health care provider. INDICATION: Knee Pain, swelling. No injury event TECHNIQUE: Knee radiograph 3 views right COMPARISON: None FINDINGS: Bone: No acute fractures or aggressive bone lesions are identified. Moderate diffuse osteopenia is present. Joint: Mild osteoarthritis of the patellofemoral compartment is noted. Chondrocalcinosis of the medial and lateral compartments are seen. A trace knee effusion is present. Soft tissue: Unremarkable. No radiopaque foreign bodies are seen. IMPRESSIONS: 1. No acute osseous injuries are noted. 2. A trace knee effusion is present. Dictated by Vaibhav Arroyo MD @ 08/17/2025 2:13:03 PM Dictated by: Vaibhav Arroyo MD @ 08/17/2025 14:13:09 (Electronically Signed)
--- OUTSIDE RECORDS SUMMARY | 2025-08-17 13:44 | XMS_ITS | Encounter Summary ---
Author Organization [place] Address [address] [place] [address]. [place] [address] Care Team Providers Care Barrel Finisher Name Role Phone Dipti Pulliam Primary Care Provider [phone] Dragan Barrett MD Unavailable + Hugo Schmitt MD Unavailable + [phone] Hugo Schmitt MD Unavailable + [phone] DarrenShanelle Rasheed MD Unavailable Miller Barber MD Unavailable +[phone] Encounter Details Date Type Department Care Team (Late st Contact Info) Description 10/10/2024 [facility] Medical Advice [facility] [address] 4[address] [place] [address] Andria Martinez Social History Tobacco Use Types Packs/Day Years Used Date Smoking Tobacco: Never Smokeless Tobacco: Never Alcohol Use Standard Drinks/Week Comments Yes 0 (1 standard drink = 0.6 oz pur e alcohol) 3/wk PHQ-2 Answer Date Recorded PHQ-2 Score 0 05/23/2024 Adolescent Education Answer Date Record ed Getting School Help Needed Not on file 09/06 Comments No Sex and Gender Information Value Date Recorded Sex Assigned at Female 10/14/2019 7:59 PM CERTIFIED LACTATION EDUCATOR Legal Sex Female 5:09 AM CERTIFIED LACTATION EDUCATOR Gender Identity Female 10/14/2019 7:59 PM CERTIFIED LACTATION EDUCATOR Sexual Orientation Straight 10/14/2019 7: 59 PM CERTIFIED LACTATION EDUCATOR documented as of this encounter Plan of Treatment Upcoming Encounters Date Type Department Care Team (Late st Contact Info) Description 09/24/2025 11:00 AM CERTIFIED LACTATION EDUCATOR Ancillary Procedure [facility] MRI [address] [place] [phone] Dragan Barrett MD [address] [place] [address] [id number] 09/24/2025 12:30 PM CERTIFIED LACTATION EDUCATOR Office Visit [facility] [address] [place] [address] Dragan Barrett MD [address] [place] [address] 517305 11/06/2025 3:30 PM CERTIFIED LACTATION EDUCATOR Office Visit [facility] Epilepsy [facility] [address] [facility], [address] [place] [phone] Miller Barber MD 420 [facility] 295 [place], [place] [address] documented as of this encounter Visit Diagnoses Not on filedocumented in this encounter Care Teams Barrel Finisher Relationship Specialty Start Date End Date Dipti Pulliam PCP - General Family Practice 10/02/19 Dragan Barrett MD [address] [place] [address] 753005 Assigned Neuroscience Provider 09/12/20 06/11/25 Hugo Schmitt MD [address] [place], [place] [address] MD Ophthalmology 01/25/24 Hugo Schmitt MD [address] [place] [address] S, [facility] 300 [place], [place] [address] Assigned Surgical Provider 04/12/24 01/12/25 Shanelle Jensen MD 420 [facility] 396 [place], [place] 90[address] Assigned Surgical Provider 01/13/25 Miller Barber MD 420 [facility] 295 [place] [address] Assigned Neuroscience Provider 06/12/25 documented as of this encounter
--- OUTSIDE RECORDS SUMMARY | 2025-08-17 13:44 | XMS_ITS | Encounter Summary ---
Author Organization [place] Address [address] [place] [address]. [place] [address] Care Team Providers Care Business Support Specialist Name Role Phone Dipti Pulliam Primary Care Provider [phone] Dragan Barrett MD Unavailable + Hugo Schmitt MD Unavailable + [phone] Hugo Schmitt MD Unavailable + [phone] Darren-Shanelle Rasheed MD Unavailable Miller Barber MD Unavailable [phone] Encounter Details Date Type Department Care Team (Late st Contact Info) Description 01/20/2024 [facility] [address] [phone] Ro Arnold Social History Tobacco Use Types Packs/Day Years Used Date Smoking Tobacco: Never Smokeless Tobacco: Never Alcohol Use Standard Drinks/Week Comments Yes 0 (1 standard drink = 0.6 oz pur e alcohol) 3/wk PHQ-2 Answer Date Recorded PHQ-2 Score 0 12/29/2023 Adolescent Education Answer Date Record ed Getting School Help Needed Not on file 09/06 Comments No Sex and Gender Information Value Date Recorded Sex Assigned at Female 10/14/2019 7:59 PM AMMUNITION SUPERVISOR Legal Sex Female 5:09 AM AMMUNITION SUPERVISOR Gender Identity Female 10/14/2019 7:59 PM AMMUNITION SUPERVISOR Sexual Orientation Straight 10/14/2019 7: 59 PM AMMUNITION SUPERVISOR documented as of this encounter Plan of Treatment Upcoming Encounters Date Type Department Care Team (Late st Contact Info) Description 09/24/2025 11:00 AM AMMUNITION SUPERVISOR Ancillary Procedure [facility] MRI [address] [place] [phone] Dragan Barrett MD [address] [place] [address] 156215 09/24/2025 12:30 PM AMMUNITION SUPERVISOR Office Visit [facility] [address] [place] [phone] Dragan Barrett MD [address] [place] [address] 025515 11/06/2025 3:30 PM AMMUNITION SUPERVISOR Office Visit M [facility] Epilepsy [facility] [address] [facility], [address] [place] [address] Miller Barber MD [address] [place] [address] 295 [place], [place] [address] documented as of this encounter Visit Diagnoses Not on filedocumented in this encounter Care Teams Business Support Specialist Relationship Specialty Start Date End Date Dipti Pulliam PCP - General Family Practice 10/02/19 Dragan Barrett MD [address] [place] [address] 584725 Assigned Neuroscience Provider 09/12/20 06/11/25 Hugo Schmitt MD 516 [place], [place] [address] MD Ophthalmology 01/25/24 Hugo Schmitt MD [address] [place] [address], [facility] 300 [place], [place] [address] Assigned Surgical Provider 04/12/24 01/12/25 Shanelle Jensen MD 420 [facility] 396 [place], [place] [address] Assigned Surgical Provider 01/13/25 Miller Barber MD 420 [facility] 295 [place] [address] Assigned Neuroscience Provider 06/12/25 documented as of this encounter
--- OUTSIDE RECORDS SUMMARY | 2025-08-17 13:44 | XMS_ITS | Encounter Summary ---
Author Organization [place] Address [address] [place] [address]. [place] [address] Care Team Providers Care Division Order Analyst Name Role Phone Dipti Pulliam Primary Care Provider [phone] Dragan Barrett MD Unavailable + Hugo Schmitt MD Unavailable [phone] Hugo Schmitt MD Unavailable +[phone] DarrenShanelle Rasheed MD Unavailable Miller Barber MD Unavailable [phone] Encounter Details Date Type Department Care Team (Late st Contact Info) Description 01/19/2024 Ophth Exam [facility] Service Line [address] [place] [address] Naldo Dalal MD [address] [place] [address] Social History Tobacco Use Types Packs/Day Years [...] Sex Assigned at Female 10/14/2019 7:59 PM ORDNANCE ENGINEERING TECHNICIAN Legal Sex Female 5:09 AM ORDNANCE ENGINEERING TECHNICIAN Gender Identity Female 10/14/2019 7:59 PM ORDNANCE ENGINEERING TECHNICIAN Sexual Orientation Straight 10/14/2019 7: 59 PM ORDNANCE ENGINEERING TECHNICIAN documented as of this encounter Plan of Treatment Upcoming Encounters Date Type Department Care Team (Late st Contact Info) Description 09/24/2025 11:00 AM ORDNANCE ENGINEERING TECHNICIAN Ancillary Procedure [facility] Imaging [facility] MRI [address] [place] [address] Dragan Barrett MD [address] [place] [address] 446305 09/24/2025 12:30 PM ORDNANCE ENGINEERING TECHNICIAN Office Visit [facility] [address] [place] [phone] Dragan Barrett MD [address] [place] [address] 435815 11/06/2025 3:30 PM ORDNANCE ENGINEERING TECHNICIAN Office Visit M [facility] Epilepsy Care [address], [address] [place] [address] Miller Barber MD [address] [place] [address] 295 [place], [place] [phone] documented as of this encounter Visit Diagnoses Not on filedocumented in this encounter Care Teams Division Order Analyst Relationship Specialty Start Date End Date Dipti Pulliam PCP - General Family Practice 10/02/19 Dragan Barrett MD [address] [place] [address] Assigned Neuroscience Provider 09/12/20 06/11/25 Hugo Schmitt MD 6 [place] [address] MD Ophthalmology 01/25/24 Hugo Schmitt MD [address] [place] [address] 300 [place] [address] Assigned Surgical Provider 04/12/24 01/12/25 Shanelle Jensen MD 420 [facility] 396 [place], [place] [address] Assigned Surgical Provider 01/13/25 Miller Barber MD 420 [facility] 295 [place], [place] [address] Assigned Neuroscience Provider 06/12/25 documented as of this encounter
--- OUTSIDE RECORDS SUMMARY | 2025-08-17 13:45 | XMS_ITS | Encounter Summary ---
Author Organization [place] Address [address] [place] [address]. [place] [address] Care Team Providers Care Eyeglass Cutter Name Role Phone Dipti Pulliam Primary Care Provider [phone] Dragan Barrett MD Unavailable + Hugo Schmitt MD Unavailable [phone] Hugo Schmitt MD Unavailable + [phone] DarrenShanelle Rasheed MD Unavailable Miller Barber MD Unavailable [phone] Encounter Details Date Type Department Care Team (Late st Contact Info) Description 10/14/2023 [facility] Adv[facility] Clinic [address] 3rd [place] [address] Dragan Barrett MD [address] [place] [address] Social History Tobacco Use Types Packs/Day Years Used Date Smoking Tobacco: Never Smokeless Tobacco: Never Alcohol Use Standard Drinks/Week Comments Yes 0 (1 standard drink = 0.6 oz pur e alcohol) 3/wk PHQ-2 Answer Date Recorded PHQ-2 Score 0 12/14/2022 Adolescent Education Answer Date Record ed Getting School Help Needed Not on file 09/06 Comments No Sex and Gender Information Value Date Recorded Sex Assigned at Female 10/14/2019 7:59 PM MODEL MAKER SCALE Legal Sex Female 5:09 AM MODEL MAKER SCALE Gender Identity Female 10/14/2019 7:59 PM MODEL MAKER SCALE Sexual Orientation Straight 10/14/2019 7: 59 PM MODEL MAKER SCALE documented as of this encounter Plan of Treatment Upcoming Encounters Date Type Department Care Team (Late st Contact Info) Description 09/24/2025 11:00 AM MODEL MAKER SCALE Ancillary Procedure [facility] Imaging Center MRI [address] [place] [phone] Dragan Barrett MD [address] [place] [address]725 09/24/2025 12:30 PM MODEL MAKER SCALE Office Visit [facility]surgery Clinic [address] [place] [phone] Dragan Barrett MD [address] [place] [address] 929135 11/06/2025 3:30 PM MODEL MAKER SCALE Office Visit [facility] Epilepsy Care [address], [address] [place] [phone] Miller Barber MD 420 [facility] 295 [place], [place] [address] documented as of this encounter Visit Diagnoses Not on filedocumented in this encounter Care Teams Eyeglass Cutter Relationship Specialty Start Date End Date Dipti Pulliam PCP - General Family Practice 10/02/19 Dragan Barrett MD 909 [place] [address] Assigned Neuroscience Provider 09/12/20 06/11/25 Hugo Schmitt MD 516 [place] [address] MD Ophthalmology 01/25/24 Hugo Schmitt MD [address] [place] [address] 300 [place] [address] Assigned Surgical Provider 04/12/24 01/12/25 Shanelle Jensen MD 420 [facility] 396 [place], [place] [address] Assigned Surgical Provider 01/13/25 Miller Barber MD 420 [facility] 295 [place], [place] [address] Assigned Neuroscience Provider 06/12/25 documented as of this encounter
--- OUTSIDE RECORDS SUMMARY | 2025-08-17 13:45 | XMS_ITS | Encounter Summary ---
Author Organization [place] Address [address] [place] [address]. [place] [address] Care Team Providers Care Treating Plant Operator Name Role Phone Dipti Pulliam Primary Care Provider [phone] Dragan Barrett MD Unavailable + Hugo Schmitt MD Unavailable + [phone] DarrenShanelle Rasheed MD Unavailable Miller Barber MD Unavailable [phone] Encounter Details Date Type Department Care Team (Late st Contact Info) Description 01/23/2025 [facility] [place] [facility] [address] Clin [address] [place] [phone] Ro Arnold Social History Tobacco Use Types Packs/Day Years Used Date Smoking Tobacco: Never Smokeless Tobacco: Never Alcohol Use Standard Drinks/Week Comments Not Currently 0 (1 standard drink = 0.6 oz pur e alcohol) PHQ-2 Answer Date Recorded PHQ-2 Score 2 01/04/2025 Adolescent Education Answer Date Record ed Getting [...] Sex Assigned at Female 10/14/2019 7:59 PM TECHNICAL SUPPORT AGENT Legal Sex Female 5:09 AM TECHNICAL SUPPORT AGENT Gender Identity Female 10/14/2019 7:59 PM TECHNICAL SUPPORT AGENT Sexual Orientation Straight 10/14/2019 7: 59 PM TECHNICAL SUPPORT AGENT documented as of this encounter Plan of Treatment Upcoming Encounters Date Type Department Care Team (Late st Contact Info) Description 09/24/2025 11:00 AM TECHNICAL SUPPORT AGENT Ancillary Procedure [facility] Imaging Center MRI [address] [place] [phone] Dragan Barrett MD [address] [place] [phone] 09/24/2025 12:30 PM TECHNICAL SUPPORT AGENT Office Visit [facility] Neurosurgery Clinic [address] [place] [phone] Dragan Barrett MD [address] [place] [address] 284005 11/06/2025 3:30 PM TECHNICAL SUPPORT AGENT Office Visit [facility] Care [address], [address] [place] [address] Miller Barber MD [address] [place] [address] 295 [place], [place] [address] documented as of this encounter Visit Diagnoses Not on filedocumented in this encounter Care Teams Treating Plant Operator Relationship Specialty Start Date End Date Dipti Pulliam PCP - General Family Practice 10/02/19 Dragan Barrett MD 909 [place] [address] Assigned Neuroscience Provider 09/12/20 06/11/25 Hugo Schmitt MD 6 [place] [address] Ophthalmology 01/25/24 Shanelle Jensen MD 420 [facility] 396 [place] [address] Assigned Surgical Provider 01/13/25 Miller Barber MD 420 [facility] 295 [place], [place] [address] Assigned Neuroscience Provider 06/12/25 documented as of this encounter
--- OUTSIDE RECORDS SUMMARY | 2025-08-17 13:45 | XMS_ITS | Clinical Summary ---
Author Organization [facility] Address [address] [place] [address] Care Team Providers Care Unhairing Inspector Name Role Phone Dipti Pulliam Primary Care Provider [phone] Hugo Schmitt MD Unavailable [phone] Shanelle Jensen MD Unavailable Miller Barber MD Unavailable [phone] Allergies Active Allergy Reactions Criticality Noted Date Comments Iodine Hives 12/07/2024 Seasonal Allergies 12/07/2024 Medications Multiple Vitamin (MULTIVITAMINS PO) Take 1 tablet by mouth daily. Active carboxymethylc ellulose PF (REFRESH PLUS) 0.5 % ophthalmic solutionIndica tions:S/P craniotomy Place 1 drop into both eyes every hour as needed for dry eyes 1 each 01/18/20 24 Active oxymetazoline (AFRIN) 0.05 % nasal sprayIndicatio ns:Meningioma (H) [place] 0.2 mLs (2 sprays) into both nostrils 2 times daily as needed for congestion (Do not use more than 3 days consecutively ). 15 mL 12/22/19 25 Active polyethylene glycol (MIRALAX) 17 GM/Dose powderIndicati ons:Meningioma (H) Take 17 g by mouth daily. 510 g 1 12/22/19 25 Active senna-docusate (SENOKOT-S/PER ICOLACE) 8.6-50 MG tabletIndicati ons:Meningioma (H) Take 1 tablet by mouth 2 times daily. 90 tablet 12/22/19 25 Active sodium chloride (OCEAN) 0.65 % nasal sprayIndicatio ns:Meningioma (H) [place] 2 sprays into both nostrils every 4 hours (while awake). 15 mL 12/22/19 25 Active magic mouthwash suspension (diphenhydrAMI NE, lidocaine, aluminum-magne sium & simethicone)In dications:Sphe noid mass, left Swish and swallow 10 mLs in mouth every 6 hours as needed for mouth sores. 500 mL 01/10/20 25 Active methocarbamol (ROBAXIN) 500 MG tabletIndicati ons:Benign neoplasm of cerebral meninges (H) Take 1 tablet (500 mg) by mouth 4 times daily as needed for muscle spasms. 20 tablet 01/18/20 25 Active artificial tears OINT ophthalmic ointmentIndica tions:Meningio ma (H) Place 1 g Into the left eye nightly as needed for dry eyes. 5 g 11 02/01/20 25 Active levETIRAcetam (KEPPRA) 750 MG tabletIndicati ons:S/P craniotomy 2 tabs by mouth in the morning and 2.5 tabs by mouth in the evening 405 tablet 3 08/07/20 25 Active Lacosamide (VIMPAT) 100 MG TABS tabletIndicati ons:S/P craniotomy Take 1 tablet (100 mg) by mouth 2 times daily. 180 tablet 1 08/07/20 25 Active Lacosamide (VIMPAT) 100 MG TABS tabletIndicati ons:S/P craniotomy Take 1 tablet (100 mg) by mouth 2 times daily. 62 tablet 5 05/22/20 25 025 Discontinued(Re order (No AVS)) levETIRAcetam (KEPPRA) 750 MG tabletIndicati ons:S/P craniotomy Take 2 tablets (1,500 mg) by mouth 2 times daily. 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 S/P craniotomy 01/16/2024 Meningioma 10/02/2017 Sensorineural hearing loss, asymmetrical 012 Encounters Date Type Department Care Team Description 08/13/2025 MyC Medical Advice [facility] Neurology [facility] - [address], [address] [place] [phone] Jennie Odonnell PA-C 08/13/2025 Telephone [facility] Neurosurgery Clinic [place] [id number] [facility] [address] 3rd [place] [address] Chary Pacheco RN 08/07/2025 11:00 AM CDT Virtual Visit [facility] Epilepsy [facility] [place] [address] [facility], [address] [place] [phone] Janine Miranda PA-C 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); S/P craniotomy 08/02/2025 MyC Medical Advice [facility] Epilepsy [facility] [address] [facility], [address] [place] [address] Miller Barber MD 07/28/2025 MyC Medical Advice [facility] Epilepsy [facility] [address] [facility], [address] [place] [address] Miller Barber MD 07/19/2025 Results Follow-Up [facility] Epilepsy [facility] [address] [facility], [address] [place] [address] Miller Barber MD Subj: Message about your results 07/16/2025 12:30 PM CDT Ancillary Procedure [facility] Epilepsy [facility] EEG [address] [facility] [address] [place] [address] Miller Barber MD 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 (H) 07/16/2025 12:15 PM CDT [facility] [address], [address] [place] [address] 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 (H) 07/16/2025 Travel 07/14/2025 MyC Medical Advice [facility] [address], [address] [place] [address] Miller Barber MD 07/11/2025 Travel 05/22/2025 2:30 PM CDT Office Visit [facility] [address], [address] [place] [phone] Miller Barber MD 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); S/P craniotomy 05/22/2025 Travel 05/18/2025 Travel from Last 3 Months Family History Medical History Relation Comments Aortic aneurysm Father Anesthesia Reaction Mother Slow to wake Arthritis Mother Macular Degeneration Mother Clotting Disorder No family hx of Malignant Hyperthermia No family hx of Relation Status Comments Father Mother Social History Tobacco Use Types Packs/Day Years Used Date Smoking Tobacco: Never Smokeless Tobacco: Never Tobacco Cessation:Counseling Given: Not Answered Alcohol Use Standard Drinks/Week Comments Not Currently [...] Sex Assigned at Female 10/14/2019 7:59 PM PHOTOGRAPHIC ENGINEER Legal Sex Female 5:09 AM PHOTOGRAPHIC ENGINEER Gender Identity Female 10/14/2019 7:59 PM PHOTOGRAPHIC ENGINEER Sexual Orientation Straight 10/14/2019 7: 59 PM PHOTOGRAPHIC ENGINEER Last Filed Vital Signs Vital Sign Reading Time Taken Comments Blood Pressure 124/68 05/22/2025 2:22 PM CDT Pulse 62 05/22/2025 2:22 PM CDT Temperature 36.7 C (98.1 F) 05/22/2025 2:22 PM CDT Respiratory Rate 16 12/22/2024 8:35 AM PHOTOGRAPHIC ENGINEER Oxygen Saturation 94% 03/28/2025 1:20 PM CDT Inhaled Oxygen Concentration - - Weight 73.5 kg (162 lb) 05/22/2025 2:22 PM CDT Height 165.1 cm (5' 5) 05/22/2025 2:22 PM CDT Body Mass Index 26.96 05/22/2025 2:22 PM CDT Plan of Treatment Upcoming Encounters Date Type Department Care Team (Late st Contact Info) Description 09/24/2025 11:00 AM PHOTOGRAPHIC ENGINEER Ancillary Procedure M [facility] Imaging [facility] MRI [address] [place] [phone] Dragan Barrett MD [address] [place] [address] 09/24/2025 12:30 PM PHOTOGRAPHIC ENGINEER Office Visit [facility] Neurosurgery Clinic [address] [place] [address] Dragan Barrett MD [address] [place] [address] 11/06/2025 3:30 PM PHOTOGRAPHIC ENGINEER Office Visit [facility] Care [address], [address] [place] [phone] Miller Barber MD [address] [facility] [address] [place], [place] [address] Health Maintenance Due Date Last Done Comments ANNUAL REVIEW OF HM ORDERS 1945 LIPID 1985 FALL RISK ASSESSMENT 10/24/2025 10/24/2024, 02/01/20 24 MEDICARE ANNUAL WELLNESS VISIT 11/06/2025 11/06/2024, 11/01/2023, 11/02/2022, Additional history exists COVID-19 VACCINE ( season) 2026 07/30/2025, 08/22/2023, 03/25/2023, Additional history exists DIABETES SCREENING 12/22/2027 12/22/2024, 0 12/22/2024, 12/21/2024, Additional history exists ADVANCE CARE PLANNING 01/25/2029 01/26/2024 DTAP/TDAP/TD VACCINE (2 - Td or Tdap) 11/30/2032 11/30/2022, 10/13/2010 DEXA 11/15/2038 11/15/2023, 10/29/2021 ZOSTER VACCINE Completed 01/22/2021, 10/01/2020 PNEUMOCOCCAL VACCINE 50+ YEARS Completed 11/02/2022, 09/04/2020 MAMMO SCREENING Discontinued 01/17/2023, 12/07/2021, 10/29/2021, Additional history exists RSV VACCINE Completed 08/22/2023 INFLUENZA VACCINE Completed 07/30/2025, , 10/18/2023, Additional history exists PHQ-2 (once per calendar year) Completed 08/07/2025, 07/16/2025, 01/04/2025, Additional history exists HPV VACCINE (No Doses Required) Completed MENINGITIS VACCINE Aged Out No longer eligible based on patient's age to complete this topic Medical Devices Implanted Type Area Supervisor Carpenters Device Identifier Shelf Expiration Date Model / Serial / Lot Graft Bone Putty Cranios Fast Set 10ml 615.10.01s - [id number] Implanted:Qty: 1 on 01/16/2024 by Dragan Barrett MD at [facility] Bone/Tissue /Biologic Left: Cranial SYNTHES-STRATE C [id number] 05/18/2024 615.10.0 1S / / [id number] Imp Plate Syn Ottoniel Hole Cover 17mm 04.503.023 - [id number] Implanted:Qty: 1 on 01/16/2024 by Dragan Barrett MD at [facility] Metallic Hardware/An chor Left: Cranial SYNTHES-STRATE C .503.0 23 / / NA Imp Plate Ottoniel Hole Cover Matrixneuro 24mm .024 - [id number] Implanted:Qty: 1 on 01/16/2024 by Dragan Barrett MD at [facility] Metallic Hardware/An chor Left: Cranial SYNTHES-STRATE C .503.0 24 / / NA Ti Matrixneuro Ulp 12mm Straight Plate - [id number] Implanted:Qty: 2 on 01/16/2024 by Dragan Barrett MD at [facility] Metallic Hardware/An chor Left: Cranial SYNTHES-STRATE C .502.0 62 / / NA Imp Scr Syn Matrix Low Pro 1.5x04mm Self Drill .104.01 - [id number] Implanted:Qty: 9 on 01/16/2024 by Dragan Barrett MD at [facility] Metallic Hardware/An chor Left: Cranial SYNTHES-STRATE C .503.1 04.01 / / NA Graft Duragen 3x3 Id330 - [id number] Implanted:Qty: 1 on 01/16/2024 by Dragan Barrett MD at [facility] Other Left: Brain [employer] 03/20/2026 [id number] / / [id number] Synthecel Dura Repair 2.5cm X 2.5cm Implanted:Qty: 1 on 12/21/2024 by Shanelle Morrison MD at [facility] Other N/A: Brain Depuy 05/20/2026 SC.400.0 06.01S / NA / [id number] Oticon Wide 4mm Implant Implanted:Qty: 1 on 08/15/2012 by Gial Lopez MD at [facility] Left: Ear 07/22/2016 / / [id number] Description:- IMPLANT NO BARRY RGE Oticon Bundle Charge Implanted:Qty: 1 on 08/15/2012 at [facility] Procedures Procedure Name Priority Date/Time Associated Diagnosis Comments EEG VIDEO 3 HOUR CONTINUOUS MONITORING Routine 07/16/2025 3:45 PM CDT 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 (H) KEPPRA (LEVETIRACETAM) LEVEL Routine 07/16/2025 12:20 PM CDT 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 (H) LACOSAMIDE LEVEL Routine 07/16/2025 12:2 0 PM CDT 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 [...] Miller Barber MD IMG EEG ORDERABLES Final Re sult [facility] * Lacosamide Level (07/16/2025 12:20 PM CDT) [facility] Lacosamide 3.8 1.0 - 10.0 ug/mL 07/19/2025 12:15 AM CDT [facility] Comment: INTERPRETIVE INFORMATION: Lacosamide, Serum Therapeutic Range: 1.0 - 10.0 ug/mL Toxic: >=20.0 ug/mL Lacosamide is an anticonvulsant drug indicated for adjunctive therapy for partial-onset seizures. The therapeutic range is based on serum, predose (trough) draw collection at steady-state concentration. Adverse effects may include dizziness, fatigue, nausea, vomiting, blurred vision, and tremor. Performed By: [facility] [address] [place] [address] Telegraph Lineman: Kanu Blanchard MD, PhD CLIA Number: [id number] Blood STRUCTURE OF RIGHT UPPER LIMB / Unknown Venipuncture / Unknown 07/16/2025 12:20 PM CDT 07/16/2025 8:24 PM CDT Miller Barber MD LAB - BLOOD ORDERABLES Renetta l Result [facility] [address] [place] [address], [facility] [phone] * Keppra (Levetiracetam) Level (07/16/2025 12:20 PM CDT) Keppra (Levetiracetam) Level 29.1 10.0 - 40.0 g/mL 07/17/2025 2:37 AM CDT [facility] Blood STRUCTURE OF RIGHT UPPER LIMB / Unknown Venipuncture / Unknown 07/16/2025 12:20 PM CDT 07/16/2025 8:24 PM CDT Miller Barber MD LAB - BLOOD ORDERABLES Renetta l Result [facility] [place] [facility] [address] [facility], [address] [address], [facility] * (ABNORMAL) Glucose by meter (12/22/2024 3:27 AM PHOTOGRAPHIC ENGINEER) GLUCOSE BY METER POCT 112(H) 70 - 99 mg/dL 12/22/2024 3:34 AM PHOTOGRAPHIC ENGINEER [facility] POC Blood, Capillary BLOOD SPECIMEN / Unknown 12/22/2024 3:27 AM PHOTOGRAPHIC ENGINEER 12/22/2024 3:34 AM PHOTOGRAPHIC ENGINEER us Shanelle Jensen MD LAB - BEAKER POC T Final Result [facility] POC [facility] [place] [facility] [address] [facility]. [address], [address] [place] [address], [facility] * MAMMOGRAM - HIM SCAN (07/14/2017 12:00 AM CDT) Anatomical Region Laterality Modality Other 07/14/2017 us Provider Outside IMG MAMMOGRAPHY ORDERABLES Renetta l Result from Last 3 Months or Most Recently Relevant to Health Maintenance Insurance MEDICARE [facility] MEDICARE SUPPLEMENT [place] Advance Directives For more information, please contact: [phone] Documents on File Type Date Recorded Patient Tank Officer Expl anation Advance Directives and Living Will 10/06/2017 8:58 AM Health Care Directiv e 10/19/2010 * Full Code (Latest Code Status on File) Date Activated Date Inactivated Comments 12/21/2024 5:05 PM 12/22/2024 4:08 PM All basic and advanced life-sustaining interventions are performed as appropriate Question Answer Comments Code status determined by: Unable to det ermine; FULL CODE until documents or legal decision maker available * Full Code Date Activated Date Inactivated Comments 01/19/2024 12:41 PM 01/23/2024 5:20 PM All basic an d advanced life-sustaining interventions are performed as appropriate Question Answer Comments Code status determined by: Discussion with patie nt/ legal decision maker Healthcare Agents on File Name Relationship Healthcare Agent Relationshi p Communication Adolph Ramos Spouse Health Care Agent Cammie Taylor Friend First Alternate Health Car e Agent Care Teams Unhairing Inspector Relationship Specialty Start Date End Date Dipti Pulliam PCP - General Family Practice 10/02/19 Hugo Schmitt MD [address] [place], [place] [address] Ophthalmology 01/25/24 Shanelle Jensen MD 420 [facility] [address] [place] [address] Assigned Surgical Provider 01/13/25 Miller Barber MD [address] [place] [address] Assigned Neuroscience Provider 06/12/25
--- OUTSIDE RECORDS SUMMARY | 2025-08-17 13:45 | XMS_ITS | Encounter Summary ---
Author Organization [place] Address [facility] [place] [address] Care Team Providers Care Newcomer Hostess Name Role Phone Dipti Pulliam Primary Care Provider [phone] Dragan Barrett MD Unavailable + Hugo Schmitt MD Unavailable [phone] Hugo Schmitt MD Unavailable [phone] [facility] Unavailable Miller Barber MD Unavailable [phone] Encounter Details Date Type Department Care Team (Late st Contact Info) Description 12/19/2024 MyC Medical Advice [facility] PREOP/PHASE II [address] [place] [address] Maranda Lucas, [place] Social History Tobacco Use Types Packs/Day Years Used Date Smoking Tobacco: Never Smokeless Tobacco: Never Alcohol Use Standard Drinks/Week Comments Not Currently 0 (1 standard drink = 0.6 oz pur e alcohol) PHQ-2 Answer Date Recorded PHQ-2 Score 0 12/07/2024 Adolescent Education Answer Date Record ed Getting [...] Sex Assigned at Female 10/14/2019 7:59 PM ROD AND TUBE STRAIGHTENER Legal Sex Female 5:09 AM ROD AND TUBE STRAIGHTENER Gender Identity Female 10/14/2019 7:59 PM ROD AND TUBE STRAIGHTENER Sexual Orientation Straight 10/14/2019 7: 59 PM ROD AND TUBE STRAIGHTENER documented as of this encounter Plan of Treatment Upcoming Encounters Date Type Department Care Team (Late st Contact Info) Description 09/24/2025 11:00 AM ROD AND TUBE STRAIGHTENER Ancillary Procedure [facility] Imaging Center MRI [address] [place] [phone] Dragan Barrett MD [address] [place] [id number] 09/24/2025 12:30 PM ROD AND TUBE STRAIGHTENER Office Visit [facility] Neurosurgery Clinic [address] [place] [phone] Dragan Barrett MD [address] [place] [id number] 11/06/2025 3:30 PM ROD AND TUBE STRAIGHTENER Office Visit [facility] Epilepsy Care [address], [address] [place] [address] Miller Barber MD [address] [place] [address] [address] [place], [place] [phone] documented as of this encounter Visit Diagnoses Not on filedocumented in this encounter Care Teams Newcomer Hostess Relationship Specialty Start Date End Date Dipti Pulliam PCP - General Family Practice 10/02/19 Dragan Barrett MD [address] [place] [address] Assigned Neuroscience Provider 09/12/20 06/11/25 Hugo Schmitt MD [address] [place] [address] Ophthalmology 01/25/24 Hugo Schmitt MD [address] [place] [address] [address] [place] [address] Assigned Surgical Provider 04/12/24 01/12/25 Shanelle Jensen MD 420 [facility] [address] [place], [place] [address] Assigned Surgical Provider 01/13/25 Miller Barber MD 420 [facility] [address] [place], [place] [address] Assigned Neuroscience Provider 06/12/25 documented as of this encounter
--- OUTSIDE RECORDS SUMMARY | 2025-08-17 13:45 | XMS_ITS | Encounter Summary ---
Author Organization [place] Address [address] [place] [address]. [place] [address] Care Team Providers Care Rubber Turner Name Role Phone Dipti Pulliam Primary Care Provider [phone] Hugo Schmitt MD Unavailable [phone] Shanelle Jensen MD Unavailable Miller Barber MD Unavailable [phone] Encounter Details Date Type Department Care Team (Late st Contact Info) Description 08/13/2025 MyC Medical Advice [facility] [address], [address] [place] [address] Jennie Odonnell PA-C [address] [place], [place] [address] Social History Tobacco Use Types Packs/Day Years [...] Sex Assigned at Female 10/14/2019 7:59 PM UNIVERSITY LECTURER Legal Sex Female 5:09 AM UNIVERSITY LECTURER Gender Identity Female 10/14/2019 7:59 PM UNIVERSITY LECTURER Sexual Orientation Straight 10/14/2019 7: 59 PM UNIVERSITY LECTURER documented as of this encounter Plan of Treatment Upcoming Encounters Date Type Department Care Team (Late st Contact Info) Description 09/24/2025 11:00 AM UNIVERSITY LECTURER Ancillary Procedure [facility] MRI [address] [phone] Dragan Barrett MD [address] [place] [address] 09/24/2025 12:30 PM UNIVERSITY LECTURER Office Visit [facility] [address] [phone] Dragan Barrett MD [address] [place] [address] 11/06/2025 3:30 PM UNIVERSITY LECTURER Office Visit [facility] Epilepsy Care [address], [address] [place] [address] Miller Barber MD [address] [place] [address] [address] [place], [place] [address] documented as of this encounter Visit Diagnoses Not on filedocumented in this encounter Care Teams Rubber Turner Relationship Specialty Start Date End Date Dipti Pulliam PCP - General Family Practice 10/02/19 Hugo Schmitt MD [address] [place] [address] Ophthalmology 01/25/24 Shanelle Jensen MD 420 [facility] 396 [place], [place] [address] Assigned Surgical Provider 01/13/25 Miller Barber MD 420 [facility] 295 [place], [place] [address] Assigned Neuroscience Provider 06/12/25 documented as of this encounter
--- OUTSIDE RECORDS SUMMARY | 2025-08-17 13:45 | XMS_ITS | Encounter Summary ---
Author Organization [facility] Address [address] [place] [address]. [place] [address] Care Team Providers Care Loader Operator Supervisor Name Role Phone Dipti Pulliam Primary Care Provider [phone] Dragan Barrett MD Unavailable + Hugo Schmitt MD Unavailable [phone] Hugo Schmitt MD Unavailable + [phone] DarrenShanelle Rasheed MD Unavailable Miller Barber MD Unavailable [phone] Encounter Details Date Type Department Care Team (Late st Contact Info) Description 03/03/2023 MyC Medical Advice [facility] Neurosurgery Clinic [address] 3rd [place] [address] Dragan Barrett MD [address] [place] [address] Social History Tobacco Use Types Packs/Day Years Used Date Smoking Tobacco: Never Smokeless Tobacco: Never Alcohol Use Standard Drinks/Week Comments Yes 0 (1 standard drink = 0.6 oz pur e alcohol) 3/wk PHQ-2 Answer Date Recorded PHQ-2 Score 0 12/14/2022 Comments No Sex and Gender Information Value Date Recorded Sex Assigned at Female 10/14/2019 7:59 PM HANDKERCHIEF PRESSER Legal Sex Female 5:09 AM HANDKERCHIEF PRESSER Gender Identity Female 10/14/2019 7:59 PM HANDKERCHIEF PRESSER Sexual Orientation Straight 10/14/2019 7: 59 PM HANDKERCHIEF PRESSER documented as of this encounter Miscellaneous Notes * Telephone Encounter - Trang Doan LPN - 03/14/2023 11:43 AM CDTSummary: Dr. Barrett Attn: KEV Herndon for Dr. Barrett *Patient with question regarding double vision No Doan LPN Neurosurgery * Telephone Encounter - Trang Doan LPN - 03/04/2023 12:24 PM CDTSummary: Dr. Barrett Attn: KEV Herndon for Dr. Barrett Patient with question on changes in vision No Doan LPN Neurosurgery documented in this encounter Plan of Treatment Upcoming Encounters Date Type Department Care Team (Late st Contact Info) Description 09/24/2025 11:00 AM HANDKERCHIEF PRESSER Ancillary Procedure [facility] MRI [address] [phone] Dragan Barrett MD [address] [place] [address] 09/24/2025 12:30 PM HANDKERCHIEF PRESSER Office Visit [facility] Neuro[facility] Clinic [address] [phone] Dragan Barrett MD [address] [place] [address] 11/06/2025 3:30 PM HANDKERCHIEF PRESSER Office Visit [facility] [address], [address] [place] [phone] Miller Barber MD 420 [facility] 295 [place], [place] [address] documented as of this encounter Visit Diagnoses Not on filedocumented in this encounter Care Teams Loader Operator Supervisor Relationship Specialty Start Date End Date Dipti Pulliam PCP - General Family Practice 10/02/19 Dragan Barrett MD [address] [place] [address] Assigned Neuroscience Provider 09/12/20 06/11/25 Hugo Schmitt MD 516 [place], [place] [address] Ophthalmology 01/25/24 Hugo Schmitt MD [address] [facility] [address] [facility] [address] [place] [address] Assigned Surgical Provider 04/12/24 01/12/25 Shanelle Jensen MD 420 [facility] 396 [place], [place] [address] Assigned Surgical Provider 01/13/25 Miller Barber MD 420 [facility] 295 [place] [address] Assigned Neuroscience Provider 06/12/25 documented as of this encounter
--- OUTSIDE RECORDS SUMMARY | 2025-08-17 13:45 | XMS_ITS | Encounter Summary ---
Author Organization [facility] Address [address] [place] [address]. [place] [address] Care Team Providers Care Rn Supplemental Name Role Phone Dipti Pulliam Primary Care Provider [phone] Dragan Barrett MD Unavailable + Hugo Schmitt MD Unavailable + [phone] Hugo Schmitt MD Unavailable [phone] DarrenShanelle Rasheed MD Unavailable Miller Barber MD Unavailable [phone] Encounter Details Date Type Department Care Team (Late st Contact Info) Description 02/01/2024 [facility] [address] 3rd [place] [address] Shirley Hernandez Social History Tobacco Use Types Packs/Day Years [...] Sex Assigned at Female 10/14/2019 7:59 PM AUTOMOBILE MECHANIC ASSISTANT Legal Sex Female 5:09 AM AUTOMOBILE MECHANIC ASSISTANT Gender Identity Female 10/14/2019 7:59 PM AUTOMOBILE MECHANIC ASSISTANT Sexual Orientation Straight 10/14/2019 7: 59 PM AUTOMOBILE MECHANIC ASSISTANT documented as of this encounter Plan of Treatment Upcoming Encounters Date Type Department Care Team (Late st Contact Info) Description 09/24/2025 11:00 AM AUTOMOBILE MECHANIC ASSISTANT Ancillary Procedure [facility] Imaging [facility] MRI [address] [place] [address] Dragan Barrett MD [address] [place] [address] 09/24/2025 12:30 PM AUTOMOBILE MECHANIC ASSISTANT Office Visit [facility] [address] [place] [address] Dragan Barrett MD [address] [place] [address] 4[address] 11/06/2025 3:30 PM AUTOMOBILE MECHANIC ASSISTANT Office Visit [facility] [address] [facility], [address] [place] [phone] Miller Barber MD 420 [facility] [address] [place], [place] [address] documented as of this encounter Visit Diagnoses Not on filedocumented in this encounter Care Teams Rn Supplemental Relationship Specialty Start Date End Date Dipti Pulliam PCP - General Family Practice 10/02/19 Dragan Barrett MD [address] [place] [address] [id number] Assigned Neuroscience Provider 09/12/20 06/11/25 Hugo Schmitt MD [address] [place], [place] [phone] Ophthalmology 01/25/24 Hugo Schmitt MD [address] [place] [address], [facility] 300 [place] [address] Assigned Surgical Provider 04/12/24 01/12/25 Shanelle Jensen MD 420 [facility] [address] [place], [place] [address] Assigned Surgical Provider 01/13/25 Miller Barber MD 420 [facility] 295 [place] [address] Assigned Neuroscience Provider 06/12/25 documented as of this encounter
--- OUTSIDE RECORDS SUMMARY | 2025-08-17 13:45 | XMS_ITS | Clinical Summary ---
Author Organization [facility] Address [address] [place] [address] Care Team Providers Care Retail Buyer Name Role Phone Dipti Pulliam MD Primary Care Provide r Berry Jennings Roslynmed DO Unavailable [phone] Allergies Active Allergy Reactions Criticality Noted Date Comments Sulfa (Sulfonamide Antibiotics) *Unknown - Pt Doesn't Remember 07/14/2017 Medications multivitamin (MVI) tablet Take 1 tablet by mouth once daily. 0 01/30/2013 Active omega-3 acid ethyl esters (LOVAZA;OMACOR) 1 gram capsule Take 2 g by mouth. Active lacosamide (VIMPAT) 100 mg tablet Take 100 mg by mouth two times daily. 02/25/2024 Active levETIRAcetam (KEPPRA) 750 mg tablet Take 1,500 mg by mouth two times daily. 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 Had fractionated gamma knife radiation Resolved Problems Problem Noted Date Diagnosed Date Resolved Date Benign neoplasm of cranial nerves 07/11/2007 08/03/2012 Overview (07/11/2007): Acoustic Neuroma Dr Mukesh Beebe [address] [place], [place] [address] FAx [phone] Unspecified tinnitus 07/11/2007 015 Overview (07/11/2007): S/P Acoustic Neuroma Encounters Date Type Department Care Team Description 07/28/2025 Travel from Last 3 Months Immunizations Immunization Administration Dates Next Due COVID-19 VACCINE SPIKEVAX (M ODERNA 50MCG/0.5ML) 12YO+ PFS 09/24/2024 COVID-19 vaccine (Pfizer-Bio NTech 30mcg/0.3mL) 12YO+ MACIEJ-SUCROSE PF, MDV 02/24/2022 COVID-19 vaccine (Pfizer-Bio NTech 30mcg/0.3mL) PF, MDV 01/01/2021,12/12/2020 Influenza, High-dose Inactivated 09/28/2019 Influenza, High-dose Quadriv alent Inactivated 09/17/2022 Influenza, Inactivated AIIV4 (Age 65+ Years) Preserv Free 10/18/2023,10/22/2021,08/26/2020 Influenza, Inactivated IIV3 (Age 65+ Years) Preserv Free 09/24/2024 Pneumococcal Conj 20-valent (Prevnar 20) 022 Pneumococcal Poly,23-Valent (Pneumovax) 09/04/20 20 RSV, Recombinant ADJ Reconst ituted (Arexvy 120MCG/0.5mL) 08/22/2023 Td, Preservative Free (age >= 7 Years) 0 Tdap 11/30/2022 Zoster (Shingrix-RZV, recombinant) 01/22/2021, Family History Medical History Relation Name Comments Heart Disease Father Aortic aneurys m Arthritis Mother Erika Knee replacemen ts Other Mother Erika macular degener ation Cancer-breast No Family History Cancer-ovarian No Family History Relation Name Status Comments Brother Alber Alive Daughter Isis Alive Father Maternal Grandfather Maternal Grandmother Mother Erika Alive Paternal Grandfather Paternal Grandmother Son 1 Adolfo Alive Son 2 Kushal Alive Son 3 Hugo Alive Social History Tobacco Use Types Packs/Day Years Used Date Smoking Tobacco: Never Smokeless Tobacco: Never Tobacco Cessation:Counseling Given: Yes Alcohol Use Standard Drinks/Week Comments Not Currently 0 (1 standard drink = 0.6 oz pur e alcohol) 0cc PHQ-2 Answer Date Recorded PHQ-2 TOTAL SCORE 0 11/06/2024 Social Connections Answer Date Recorded Do you often feel lonely or isolated from those around you? 0 11/06/2024 Financial Resource Strain Answer Date R ecorded Difficulty of Paying Living Expenses 3 11/06/2024 Difficulty of Paying Living Expenses Not on file 11/06/2024 Food Insecurity Answer Date Recorded Do you worry your food will run out before you are able to buy more? 1 11/06/2024 Transportation Needs Answer Date Record ed Does lack of transportation keep you from medica l appointments? 1 11/06/2024 Does lack of transportation keep you from work, meetings or getting things that you need? 1 11/06/2024 Housing Stability Answer Date Recorded What is your housing situation today? 1 11/06/2024 Utilities Answer Date Recorded Do you have trouble paying f or utilities (for example, heat, electricity, water, phone)? 1 11/06/2024 Comments No Sex and Gender Information Value Date Recorded Sex Assigned at Female 01/11/2021 8:44 PM CLASSROOM COORDINATOR Legal Sex Female 5:25 AM CLASSROOM COORDINATOR Gender Identity Female 01/11/2021 8:44 PM CLASSROOM COORDINATOR Sexual Orientation Straight 01/11/2021 8: 44 PM CLASSROOM COORDINATOR Obstetrics History Last Filed Vital Signs Vital Sign Reading Time Taken Comments Blood Pressure 134/70 01/29/2025 11:05 AM CDT Pulse 80 01/29/2025 11:05 AM CDT Temperature 36.2 C (97.2 F) 09/04/2024 11:20 AM CDT Respiratory Rate 16 09/04/2024 1:46 PM CDT Oxygen Saturation 99% 11/06/2024 10:08 AM CLASSROOM COORDINATOR Inhaled Oxygen Concentration - - Weight 70.3 kg (155 lb) 01/29/2025 11:05 AM CDT Height 165.7 cm (5' 5.25) 11/06/2024 10:[address] Body Mass Index 25.6 11/06/2024 10:08 AM CLASSROOM COORDINATOR Plan of Treatment Upcoming Encounters Date Type Department Care Team (Late st Contact Info) Description 10/08/2025 12:10 PM CLASSROOM COORDINATOR Office Visit [facility] [address] [place], [place] [phone] Berry Jennings DO [address] [place] [address] 11/08/2025 9:30 AM CLASSROOM COORDINATOR Office Visit [facility] [address] [place] [address] Dipti Pulliam MD [address] [place] [address] Health Maintenance Due Date Last Done Comments COVID-19 vaccine series ( season) 2025 09/24/2024, 08/22/2023, 03/25/2023, Additional history exists Influenza Vaccine (#1) 2025 , 10/18/2023, 10/22/2021, Additional history exists BMI (ht and wt on same day) for age 18+ 11/06/2025 11/06/2024, 09/19/2024, 08/14/2024, Additional history exists Depression screening for age 12+ 11/06/2025 11/06/2024, 11/01/2023, 11/02/2022, Additional history exists Medicare Wellness for age 65+ 11/07/2025 11/06/2024, 11/01/2023, 11/02/2022, Additional history exists Tetanus booster 11/30/2032 11/30/2022, 10/13/2010 Zoster (shingles) series for age 50+ Completed 01/22/2021, 10/01/2020 Pneumococcal series for age 50+ Completed 11/02/2022, 09/04/2020 RSV vaccine for adults or Completed 08/22/2023 DEXA/DXA scan for age 65+ Completed 2022, 10/29/2021, 07/07/2010 Hepatitis B series for 19+ Aged Out N o longer eligible based on patient's age to complete this topic Procedures Procedure Name Priority Date/Time Associated Diagnosis Comments XR DXA BONE DENSITY 2 SITES AXIAL Routine 11/15/2023 3:26 PM CLASSROOM COORDINATOR Osteoporosis, unspecified osteoporosis type, unspecified pathological fracture presence from Last 3 Months or Most Recently Relevant to Health Maintenance Results * (ABNORMAL) XR DXA BONE DENSITY 2 SITES AXIAL (11/15/2023 3:26 PM CLASSROOM COORDINATOR) Anatomical Region Laterality Modality Spine, HIPS, HIPL, HIPR Other Impressions 11/16/2023 4:32 PM CLASSROOM COORDINATOR Osteoporosis. RECOMMENDATIONS: The National Osteoporosis Foundation recommends pharmacologic treatment for patients with T-scores of -2.5 or less, patients with prior history of fragility fractures, or patients with 10-year probability of greater than 3% at hips or greater than 20% of suffering major osteoporotic fractures. Recommend continued optimization of calcium and vitamin D intake through dietary means and/or supplementation and regular exercise. Consider pharmacologic therapy for osteoporosis. Follow-up bone density reading in 2 years if therapy initiated to assess therapeutic efficacy. Martina Gooden PA-C [facility] 11/16/2023 Narrative 11/16/2023 4:32 PM CLASSROOM COORDINATOR For Patients: Results are automatically released to your [employer]) account once available, in compliance with federal regulations. This means that you may see your results before your provider has had a chance to review them. Please allow 2-3 business days for your provider to comment on the results. XR DXA Bone Mineral Density (BMD) EXAM LOCATION: [address] [address] PATIENT NAME: Josefina Ramos DATE OF : 1945 EXAM DATE: 11/15/2023 REQUESTING PROVIDER: Dipti Pulliam MD GENDER AT : female HEIGHT: 5' 5.25 (11/01/2023) WEIGHT: 149 lb 12.8 oz (11/01/2023) MENOPAUSAL STATUS: Postmenopausal RACE/ETHNICITY: White RISK FACTORS: Family History of Osteoporosis, History of Fragility Fracture (at a major site), and White Race CURRENT MEDICATION FOR BONE LOSS: NONE INDICATION: OSTEOPOROSIS, UNSPECIFIED OSTEOPOROSIS TYPE, UNSPECIFIED PATHOLOGICAL FRACTURE PRESENCE COMPARISON DATE(S): 2020 DXA scans are compared to prior studies for a patient only when the two (or more) studies were performed on the same scanner. It is not possible to compare data generated on one scanner to data from another because there are not standards in DXA equipment. This applies even if the two scanners are made by the same vocational rehabilitation technician. PROCEDURE: Dual-energy x-ray absorptiometry performed with routine technique. Reporting is completed in the form of a T-score. The T-score represents the standard deviation from peak bone mass based on young healthy adult. A Z-score is used for diagnosis in premenopausal women, and for men under the age of 50. FINDINGS: RESULT LUMBAR SPINE L1 - L4 BMD: 1.241 g/cm2 T-Score: + 0.4 Z-Score: + 2.1 Change from prior in 2020: Increase 4.1%. RESULTS FEMUR Left femoral neck BMD: 0.718 g/cm2 T-Score: - 2.3 Z-Score: - 0.3 Change from prior in 2020: Increase 0.4%. Right femoral neck BMD: 0.686 g/cm2 T-Score: - 2.5 Z-Score: - 0.5 Change from prior in 2020: Increase 0.6%. Left hip BMD: 0.748 g/cm2 T-Score: - 2.1 Z-Score: - 0.2 Change from prior in 2020: Increase 1.1%. Right hip BMD: 0.686 g/cm2 T-Score: - 2.6 Z-Score: - 0.7 Change from prior in 2020: Increase 2.1%. WHO criteria: Normal: T-score at or above -1 SD Osteopenia: T-score between -1.1 and -2.4 SD Osteoporosis: T-score at or below -2.5 SD Dipti SALMON Final Result from Last 3 Months or Most Recently Relevant to Health Maintenance [place] [address] MEDICARE PB ONLY [facility] MEDICARE PART B HB ONLY MEDICARE PART A HB ONLY [address], [place] [address] MEDICARE PB ONLY [facility] MEDICARE PART B HB ONLY Advance Directives Documents on File Type Date Recorded Patient Flight Operations Specialist Expl anation Healthcare Directive 11/30/2022 1:52 PM NO VEMBER 2021 * Full Code (Latest Code Status on File) Date Activated Date Inactivated Comments 09/04/2024 6:34 AM 09/04/2024 4:19 PM Question Answer Comments Code Status Discussion: Not Discussed Care Teams Retail Buyer Relationship Specialty Start Date End Date Dipti Pulliam MD [address] [place] [address] PCP - General 03/23/06 Berry Jennings DO [address] [facility] [address] [place] [address] Endocrinology 07/31/24
--- OUTSIDE RECORDS SUMMARY | 2025-08-17 13:45 | XMS_ITS | Encounter Summary ---
Author Organization [facility] Address [address] [place] [address]. [place] [address] Care Team Providers Care Bowling Ball Assembler Name Role Phone Dipti Pulliam Primary Care Provider [phone] Dragan Barrett MD Unavailable + Hugo Schmitt MD Unavailable + [phone] Hugo Schmitt MD Unavailable [phone] DarrenShanelle Rasheed MD Unavailable Miller Barber MD Unavailable [phone] Encounter Details Date Type Department Care Team (Late st Contact Info) Description 01/05/2024 [facility] Medical Advice [facility] [place] [address] [facility] [address] 5th [place] [address] Uzma Arthur, RN Social History Tobacco Use Types Packs/Day Years [...] Sex Assigned at Female 10/14/2019 7:59 PM PRECISION FARMING COORDINATOR Legal Sex Female 5:09 AM PRECISION FARMING COORDINATOR Gender Identity Female 10/14/2019 7:59 PM PRECISION FARMING COORDINATOR Sexual Orientation Straight 10/14/2019 7: 59 PM PRECISION FARMING COORDINATOR documented as of this encounter Plan of Treatment Upcoming Encounters Date Type Department Care Team (Late st Contact Info) Description 09/24/2025 11:00 AM PRECISION FARMING COORDINATOR Ancillary Procedure [facility] Imaging [facility] MRI [address] [place] [address] Dragan Barrett MD [address] [place] [address] [id number] 09/24/2025 12:30 PM PRECISION FARMING COORDINATOR Office Visit [facility] [address]rd [place] [address] Dragan Barrett MD [address] [place] [address] 050305 11/06/2025 3:30 PM PRECISION FARMING COORDINATOR Office Visit [facility] Epilepsy Care [address] [facility], [address] [place] [address] Miller Barber MD 420 [facility] 295 [place], [place] [address] documented as of this encounter Visit Diagnoses Not on filedocumented in this encounter Care Teams Bowling Ball Assembler Relationship Specialty Start Date End Date Dipti Pulliam PCP - General Family Practice 10/02/19 Dragan Barrett MD [address] [place] [address] 639885 Assigned Neuroscience Provider 09/12/20 06/11/25 Hugo Schmitt MD 516 [place] [address] MD Ophthalmology 01/25/24 Hugo Schmitt MD [address] [facility] [address], [facility] [address] [place], [place] [address] Assigned Surgical Provider 04/12/24 01/12/25 Shanelle Jensen MD 420 [facility] 396 [place], [place] [address] Assigned Surgical Provider 01/13/25 Miller Barber MD 420 [facility] 295 [place] [address] Assigned Neuroscience Provider 06/12/25 documented as of this encounter
--- OUTSIDE RECORDS SUMMARY | 2025-08-17 13:45 | XMS_ITS | Encounter Summary ---
Author Organization [facility] Address [address] [place] [address]. [place] [address] Care Team Providers Care Gamer Name Role Phone Dipti Pulliam Primary Care Provider [phone] Dragan Barrett MD Unavailable + Hugo Schmitt MD Unavailable + [phone] Hugo Schmitt MD Unavailable [phone] DarrenShanelle Rasheed MD Unavailable Miller Barber MD Unavailable [phone] Reason for Visit * Reason Onset Date Comments Call Back 02/10/2024 Appointment Encounter Details Date Type Department Care Team (Late st Contact Info) Description 02/10/2024 [facility] [address] 3rd [place] [address] Ro Arnold Call Back (Appointment) Social History Tobacco Use Types Packs/Day Years [...] Sex Assigned at Female 10/14/2019 7:59 PM TOOTH GRINDER Legal Sex Female 5:09 AM TOOTH GRINDER Gender Identity Female 10/14/2019 7:59 PM TOOTH GRINDER Sexual Orientation Straight 10/14/2019 7: 59 PM TOOTH GRINDER documented as of this encounter Miscellaneous Notes * Telephone Encounter - Jessica Mosher - 02/13/2024 2:09 PM CDT [facility] Phone Message May a detailed message be left on voicemail: yes Reason for Call: Other: Patient would like to do in person instead of video. Please call back to schedule in April in person. Action Taken: Other: Neurosurgery Travel Screening: Not Applicable documented in this encounter Plan of Treatment Upcoming Encounters Date Type Department Care Team (Late st Contact Info) Description 09/24/2025 11:00 AM TOOTH GRINDER Ancillary Procedure [facility] MRI [address] [phone] Dragan Barrett MD [address] [place] [phone] 09/24/2025 12:30 PM TOOTH GRINDER Office Visit [facility] Neuro[facility] Clinic [address] [phone] Dragan Barrett MD [address] [place] [phone] 11/06/2025 3:30 PM TOOTH GRINDER Office Visit [facility] Epilepsy Care [address], [address] [place] [phone] Miller Barber MD [address] [place] [address] [address] [place] [address] documented as of this encounter Visit Diagnoses Not on filedocumented in this encounter Care Teams Gamer Relationship Specialty Start Date End Date Dipti Pulliam PCP - General Family Practice 10/02/19 Dragan Barrett MD [address] [place] [address] Assigned Neuroscience Provider 09/12/20 06/11/25 Hugo Schmitt MD 516 [place] [address] MD Ophthalmology 01/25/24 Hugo Schmitt MD [address] [facility] [address], [facility] 300 [place] [address] Assigned Surgical Provider 04/12/24 01/12/25 Shanelle Jensen MD 420 [facility] 396 [place] [address] Assigned Surgical Provider 01/13/25 Miller Barber MD 420 [facility] 295 [place] [address] Assigned Neuroscience Provider 06/12/25 documented as of this encounter
--- OUTSIDE RECORDS SUMMARY | 2025-08-17 13:45 | XMS_ITS | Encounter Summary ---
Author Organization [facility] Address [address] [place] [address]. [place] [address] Care Team Providers Care Maritime Engineer Name Role Phone Dipti Pulliam Primary Care Provider [phone] Dragan Barrett MD Unavailable + Hugo Schmitt MD Unavailable [phone] DarrenShanelle Rasheed MD Unavailable Miller Barber MD Unavailable [phone] Encounter Details Date Type Department Care Team (Late st Contact Info) Description 04/14/2025 [facility] [address], [address] [place] [address] Miller Barber MD 420 [facility] 295 [place] [address] Social History Tobacco Use Types Packs/Day [...] Sex Assigned at Female 10/14/2019 7:59 PM CHARGER TESTER Legal Sex Female 5:09 AM CHARGER TESTER Gender Identity Female 10/14/2019 7:59 PM CHARGER TESTER Sexual Orientation Straight 10/14/2019 7: 59 PM CHARGER TESTER documented as of this encounter Plan of Treatment Upcoming Encounters Date Type Department Care Team (Late st Contact Info) Description 09/24/2025 11:00 AM CHARGER TESTER Ancillary Procedure [facility] Imaging Center MRI [address] [phone] Dragan Barrett MD [address] [place] [address] [phone] 09/24/2025 12:30 PM CHARGER TESTER Office Visit [facility] Neurosurgery Clinic [address] [phone] Dragan Barrett MD [address] [place] [address] 11/06/2025 3:30 PM CHARGER TESTER Office Visit [facility] [address], [address] [place] [phone] Miller Barber MD 420 [facility] 295 [place], [place] [address] documented as of this encounter Visit Diagnoses Not on filedocumented in this encounter Care Teams Maritime Engineer Relationship Specialty Start Date End Date Dipti Pulliam PCP - General Family Practice 10/02/19 Dragan Barrett MD 9[address] [place], [place] [address] Assigned Neuroscience Provider 09/12/20 06/11/25 Hugo Schmitt MD 516 [place], [place] [address] Ophthalmology 01/25/24 Shanelle Jensen MD 420 [facility] 396 [place] [address] Assigned Surgical Provider 01/13/25 Miller Barber MD 420 [facility] 295 [place] [address] Assigned Neuroscience Provider 06/12/25 documented as of this encounter
--- OUTSIDE RECORDS SUMMARY | 2025-08-17 13:45 | XMS_ITS | Encounter Summary ---
Author Organization [place] Address [address] [place] [address]. [place] [address] Care Team Providers Care Yeast Culture Operator Name Role Phone Dipti Pulliam Primary Care Provider [phone] Dragan Barrett MD Unavailable + Hugo Schmitt MD Unavailable [phone] Hugo Schmitt MD Unavailable + [phone] DarrenShanelle Rasheed MD Unavailable Miller Barber MD Unavailable [phone] Encounter Details Date Type Department Care Team (Late st Contact Info) Description 09/29/2023 [facility] Medical Advice [facility] Clinic [address] 3rd [place] [address] Dragan Barrett MD [address] [place] [address] Social History Tobacco Use Types Packs/Day [...] Sex Assigned at Female 10/14/2019 7:59 PM TILE MASON Legal Sex Female 5:09 AM TILE MASON Gender Identity Female 10/14/2019 7:59 PM TILE MASON Sexual Orientation Straight 10/14/2019 7: 59 PM TILE MASON documented as of this encounter Plan of Treatment Upcoming Encounters Date Type Department Care Team (Late st Contact Info) Description 09/24/2025 11:00 AM TILE MASON Ancillary Procedure [facility] Imaging Center MRI [address] [place] [phone] Dragan Barrett MD [address] [place] [address] 440365 09/24/2025 12:30 PM TILE MASON Office Visit [facility] [address] [place] [phone] Dragan Barrett MD [address] [place] [address] 742355 11/06/2025 3:30 PM TILE MASON Office Visit [facility] Epilepsy Care [address], [address] [place] [address] Miller Barber MD 420 [facility] 295 [place], [place] [address] documented as of this encounter Visit Diagnoses Not on filedocumented in this encounter Care Teams Yeast Culture Operator Relationship Specialty Start Date End Date Dipti Pulliam PCP - General Family Practice 10/02/19 Dragan Barrett MD 909 [place] [address] Assigned Neuroscience Provider 09/12/20 06/11/25 Hugo Schmitt MD 516 [place] [address] MD Ophthalmology 01/25/24 Hugo Schmitt MD [address] [place] [address] 300 [place] [address] Assigned Surgical Provider 04/12/24 01/12/25 Shanelle Jensen MD 420 [facility] 396 [place], [place] 076585 Assigned Surgical Provider 01/13/25 Miller Barber MD 420 [facility] 295 [place], [place] 87[address]95 Assigned Neuroscience Provider 06/12/25 documented as of this encounter
--- OUTSIDE RECORDS SUMMARY | 2025-08-17 13:45 | XMS_ITS | Encounter Summary ---
Author Organization [place] Address [address] [place] [address] Care Team Providers Care Kitchen Chef Name Role Phone Dipti Pulliam Primary Care Provider [phone] Dragan Barrett MD Unavailable + Leah Bellamy MD Unavailable [phone] Hugo Schmitt MD Unavailable [phone] Hugo Schmitt MD Unavailable [phone] DarrenShanelle Rasheed MD Unavailable Miller Barber MD Unavailable [phone] Encounter Details Date Type Department Care Team (Late st Contact Info) Description 10/21/2020 [facility] [address] 3rd [place] [address] Dragan Barrett MD [address] [place] [address] Social History Tobacco Use Types Packs/Day Years Used Date Smoking Tobacco: Never Smokeless Tobacco: Never Alcohol Use Standard Drinks/Week Comments Yes 0 (1 standard drink = 0.6 oz pur e alcohol) 3/wk PHQ-2 Answer Date Recorded PHQ-2 Score 0 10/16/2019 Comments No Sex and Gender Information Value Date Recorded Sex Assigned at Female 10/14/2019 7:59 PM SALES REPRESENTATIVE AIRCRAFT Legal Sex Female 5:09 AM SALES REPRESENTATIVE AIRCRAFT Gender Identity Female 10/14/2019 7:59 PM SALES REPRESENTATIVE AIRCRAFT Sexual Orientation Straight 10/14/2019 7: 59 PM SALES REPRESENTATIVE AIRCRAFT COVID-19 Exposure Response Date Recorded In the last month, have you been in contact with someone who was confirmed or suspected to have Coronavirus / COVID-19? No / Unsure 10/14/2020 10:28 AM SALES REPRESENTATIVE AIRCRAFT documented as of this encounter Miscellaneous Notes * Telephone Encounter - Trang Doan LPN - 10/21/2020 12:33 PM SALES REPRESENTATIVE AIRCRAFT Bargeman sent message to Dr. Arnold CHAUDHARI to [facility] to [facility] REPRESENTATIVE AIRCRAFT documented in this encounter Plan of Treatment Upcoming Encounters Date Type Department Care Team (Late st Contact Info) Description 09/24/2025 11:00 AM SALES REPRESENTATIVE AIRCRAFT Ancillary Procedure [facility] Imaging Center MRI [address] [phone] Dragan Barrett MD [address] [place] [address] 688765 09/24/2025 12:30 PM SALES REPRESENTATIVE AIRCRAFT Office Visit [facility] Neurosurgery Clinic [address] [place] [address] Dragan Barrett MD [address] [place] [address] 11/06/2025 3:30 PM SALES REPRESENTATIVE AIRCRAFT Office Visit [facility] [address], [address] [place] [address] Miller Barber MD 420 [facility] 295 [place], [place] [address] documented as of this encounter Visit Diagnoses Not on filedocumented in this encounter Care Teams Kitchen Chef Relationship Specialty Start Date End Date Dipti Pulliam PCP - General Family Practice 10/02/19 Dragan Barrett MD [address] [place] [address] 255125 Assigned Neuroscience Provider 09/12/20 06/11/25 Leah Bellamy MD [address] [place] [address] 149355 Assigned Cancer Care Provider 09/12/20 04/18/21 Hugo Schmitt MD 516 [place], [place] 899395 Ophthalmology 01/25/24 Hugo Schmitt MD [address] [facility] 300 [place], [place] 395434 Assigned Surgical Provider 04/12/24 01/12/25 Shanelle Jensen MD 420 [facility] 396 [place] [address] Assigned Surgical Provider 01/13/25 Miller Barber MD 420 [facility] 295 [place], [place] 8[address]25 Assigned Neuroscience Provider 06/12/25 documented as of this encounter
--- OUTSIDE RECORDS SUMMARY | 2025-08-17 13:45 | XMS_ITS | Encounter Summary ---
Author Organization [place] Address [address] [place] [address]. [place] [address] Care Team Providers Care Chemical Dependency Nurse Name Role Phone Dipti Pulliam Primary Care Provider [phone] Hugo Schmitt MD Unavailable [phone] Shanelle Jensen MD Unavailable Miller Barber MD Unavailable [phone] Encounter Details Date Type Department Care Team (Late st Contact Info) Description 08/02/2025 [facility]psy [facility] [address], [address] [place] [address] Miller Barber MD 420 [facility] 295 [place] [address] Social History Tobacco Use Types [...] Sex Assigned at Female 10/14/2019 7:59 PM HAND ZIPPER TRIMMER Legal Sex Female 5:09 AM HAND ZIPPER TRIMMER Gender Identity Female 10/14/2019 7:59 PM HAND ZIPPER TRIMMER Sexual Orientation Straight 10/14/2019 7: 59 PM HAND ZIPPER TRIMMER documented as of this encounter Miscellaneous Notes * Telephone Encounter - Luciano Gu MA - 08/07/2025 10:02 AM CDT DMV form signed, faxed and mailed to [employer] on 08/07/2025, sent to scanning, and copy mailed to patient. * Telephone Encounter - Sarah Anne RN - 08/05/2025 1:59 PM CDT DMV form prepared and left in provider basket for signature. * Telephone Encounter - Janine Miranda PA-C - 08/02/2025 4:52 PM CDT Noted thank you Janine Miranda PA-C * Telephone Encounter - Sarah Anne RN - 08/02/2025 11:21 AM CDT Called returned to [place]. She reported that she has had two instances recently where she had a lapse in time where a car seems to show up out of nowhere or she has a handful of items that she doesn't remember picking up. She says this is consistent with her typical seizure type. She believes the episodes are only last up to 30 seconds. When she regains consciousness, she feels back to normal. Patient missed her AED dose from 11:30 pm last night. When she woke up this morning, she could tellsomething was wrong because she felt very shaky this morning. Once she realized this, she took her missed medication dose (100 mg Vimpat and 1500 mg Keppra) at 8am. She believes the seizure caused her to missed her medication dose. She is about to go out of town for two weeks car camping in the [facility]. They go into town periodically but it will be fairly remote. Triggers Patient denies any missed medication doses, recent illness, increased caffeine/alcohol/drug intake,new medications or supplements, increased stress, change in environment/routine, or poor sleep. Current medications - Lacosamide (VIMPAT) 100 MG TABS tablet, take 1 tablet (100 mg) BID - levETIRAcetam (KEPPRA) 750 MG tablet, Take 2 tablets (1,500 mg) by mouth 2 times daily Labs last drawn on 07/16/25 - Keppra 29.1 - Lacosamide 3.8 Chairlift Operator reinforced recommendations made via [employer] to consider 8 am dosing making up her missed dose last night, and to continue with her 11:30 am dosing and 11:30 pm dosing tonight. Therefore, patient should take one extra dose of her AEDs. I reviewed [place] regulations on seizures and driving with the patient. She appeared to clearly understand that he is prohibited from operating a motor vehicle within 3 months following any seizure or other episode with sudden unconsciousness or inability to sit up, and that he is required to report any future such seizure to the [facility] within 30 days after the event. Chairlift Operator informed patient that provider will be notified and a steam crane operator would follow up with any new recommendations. Patient verbalized understanding and has no further questions at this time. documented in this encounter Plan of Treatment Upcoming Encounters Date Type Department Care Team (Late st Contact Info) Description 09/24/2025 11:00 AM HAND ZIPPER TRIMMER Ancillary Procedure [address]st [place] [phone] Dragan Barrett MD [address] [place] [address] [phone] 09/24/2025 12:30 PM HAND ZIPPER TRIMMER Office Visit M [facility] Neurosurgery Clinic [address] 3rd [place] [phone] Dragan Barrett MD [address] [place] [address] 11/06/2025 3:30 PM HAND ZIPPER TRIMMER Office Visit [facility] Epilepsy [facility] [address] [facility], [address] [place] [address] Miller Barber MD 420 [facility] 295 [place], [place] [address] documented as of this encounter Visit Diagnoses Not on filedocumented in this encounter Care Teams Chemical Dependency Nurse Relationship Specialty Start Date End Date Jason Pulliame PCP - General Family Practice 10/02/19 Hugo Schmitt MD 6 [place], [place] 2[address] Ophthalmology 01/25/24 Shanelle Jensen MD 420 [facility] 396 [place], [place] [address]90[address] Assigned Surgical Provider 01/13/25 Miller Barber MD 420 [facility] 295 [place] [address] Assigned Neuroscience Provider 06/12/25 documented as of this encounter
--- OUTSIDE RECORDS SUMMARY | 2025-08-17 13:45 | XMS_ITS | Encounter Summary ---
Author Organization [place] Address [address] [place] [address]. [place] [address] Care Team Providers Care Logistics Vice President Name Role Phone Dipti Pulliam Primary Care Provider [phone] Hugo Schmitt MD Unavailable [phone] Shanelle Jensen MD Unavailable Miller Barber MD Unavailable Encounter Details Date Type Department Care Team (Late st Contact Info) Description 07/14/[address] [facility] Medical Advice [facility] Epilepsy Care [address], [address] [place] [address] Miller Barber MD 420 [facility] 295 [place] [address] Social History Tobacco Use Types [...] Sex Assigned at Female 10/14/2019 7:59 PM CONSULTANT INTERNSHIP Legal Sex Female 5:09 AM CONSULTANT INTERNSHIP Gender Identity Female 10/14/2019 7:59 PM CONSULTANT INTERNSHIP Sexual Orientation Straight 10/14/2019 7: 59 PM CONSULTANT INTERNSHIP documented as of this encounter Plan of Treatment Upcoming Encounters Date Type Department Care Team (Late st Contact Info) Description 09/24/2025 11:00 AM CONSULTANT INTERNSHIP Ancillary Procedure M [facility] Imaging Center MRI [address] [phone] Dragan Barrett MD [address] [place] [address] 965005 09/24/2025 12:30 PM CONSULTANT INTERNSHIP Office Visit M [facility] Neurosurgery Clinic [address] [phone] Dragan Barrett MD [address] [place] [address] 339865 11/06/2025 3:30 PM CONSULTANT INTERNSHIP Office Visit [facility] [address], [address] [place] [address] Miller Barber MD [address] [place] [address] 295 [place], [place] [address] documented as of this encounter Visit Diagnoses Not on filedocumented in this encounter Care Teams Logistics Vice President Relationship Specialty Start Date End Date Dipti Pulliam PCP - General Family Practice 10/02/19 Hugo Schmitt MD 516 [place] [address] Ophthalmology 01/25/24 Shanelle Jensen MD 420 [facility] 396 [place] [address] Assigned Surgical Provider 01/13/25 Miller Barber MD 420 [facility] 295 [place], [place] 533235 Assigned Neuroscience Provider 06/12/25 documented as of this encounter
--- OUTSIDE RECORDS SUMMARY | 2025-08-17 13:45 | XMS_ITS | Encounter Summary ---
Author Organization [facility] Address [address] [place] [address]. [place] [address] Care Team Providers Care Keyboard Instrument Tuner Name Role Phone Dipti Pulliam Primary Care Provider Hugo Schmitt MD Unavailable [phone] Shanelle Jensen MD Unavailable Miller Barber MD Unavailable Encounter Details Date Type Department Care Team (Late st Contact Info) Description 07/28/2025 [facility] Medical Advice [facility] Epilepsy Care [address], [address] [place] [address] Miller Barber MD 420 [facility] 295 [place] [address] Social History Tobacco Use Types [...] Sex Assigned at Female 10/14/2019 7:59 PM SENIOR ASIC DESIGN ENGINEER Legal Sex Female 5:09 AM SENIOR ASIC DESIGN ENGINEER Gender Identity Female 10/14/2019 7:59 PM SENIOR ASIC DESIGN ENGINEER Sexual Orientation Straight 10/14/2019 7: 59 PM SENIOR ASIC DESIGN ENGINEER documented as of this encounter Plan of Treatment Upcoming Encounters Date Type Department Care Team (Late st Contact Info) Description 09/24/2025 11:00 AM SENIOR ASIC DESIGN ENGINEER Ancillary Procedure M [facility] Imaging Center MRI [address] [phone] Dragan Barrett MD [address] [place] [address] 528405 09/24/2025 12:30 PM SENIOR ASIC DESIGN ENGINEER Office Visit M [facility] Neurosurgery Clinic [address] [phone] Dragan Barrett MD [address] [place] [address] 195245 11/06/2025 3:30 PM SENIOR ASIC DESIGN ENGINEER Office Visit [facility] [address], [address] [place] [phone] Miller Braber MD [address] [place] [address] 295 [place], [place] 126325 documented as of this encounter Visit Diagnoses Not on filedocumented in this encounter Care Teams Keyboard Instrument Tuner Relationship Specialty Start Date End Date Dipti Pulliam PCP - General Family Practice 10/02/19 Hugo Schmitt MD 516 [place] [address] Ophthalmology 01/25/24 Shanelle Jensen MD 420 [facility] 396 [place] [address] Assigned Surgical Provider 01/13/25 Miller Barber MD 420 [facility] 295 [place], [place] [address] Assigned Neuroscience Provider 06/12/25 documented as of this encounter
--- OUTSIDE RECORDS SUMMARY | 2025-08-17 13:45 | XMS_ITS | Encounter Summary ---
Author Organization [facility] Address [address] [place] [address]. [place] [address] Care Team Providers Care Front Desk Supervisor Name Role Phone Dipti Pulliam Primary Care Provider [phone] Dragan Barrett MD Unavailable + Hugo Schmitt MD Unavailable [phone] Hugo Schmitt MD Unavailable [phone] [facility]an[facility] Rasheed MD Unavailable Miller Barber MD Unavailable [phone] Encounter Details Date Type Department Care Team (Late st Contact Info) Description 01/04/2025 [facility] Medical Advice [facility] Epilepsy Care [address], [address] [place] [address] Miller Barber MD [address] [place] [address] 295 [place], [place] [address] Social History Tobacco Use Types Packs/Day Years [...] Sex Assigned at Female 10/14/2019 7:59 PM CIGARETTE MAKER Legal Sex Female 5:09 AM CIGARETTE MAKER Gender Identity Female 10/14/2019 7:59 PM CIGARETTE MAKER Sexual Orientation Straight 10/14/2019 7: 59 PM CIGARETTE MAKER documented as of this encounter Plan of Treatment Upcoming Encounters Date Type Department Care Team (Late st Contact Info) Description 09/24/2025 11:00 AM CIGARETTE MAKER Ancillary Procedure [facility] Imaging Center MRI [address] [phone] Dragan Barrett MD [address] [place] [address] [phone] 09/24/2025 12:30 PM CIGARETTE MAKER Office Visit M [facility] Neurosurgery Clinic [address]rd [place] [phone] Dragan Barrett MD [address] [place] [address] 695405 11/06/2025 3:30 PM CIGARETTE MAKER Office Visit [facility] [address], [address] [place] [address] Miller Barber MD 420 [facility] 295 [place], [place] [address] documented as of this encounter Visit Diagnoses Not on filedocumented in this encounter Care Teams Front Desk Supervisor Relationship Specialty Start Date End Date Dipti Pulliam PCP - General Family Practice 10/02/19 Dragan Barrett MD [address] [place] [address] 309525 Assigned Neuroscience Provider 09/12/20 06/11/25 Hugo Schmitt MD 6 [place], [place] 5[address]25 MD Ophthalmology 01/25/24 Hugo Schmitt MD [address] [place] [address], [facility] 300 [place], [place] [address] Assigned Surgical Provider 04/12/24 01/12/25 Shanelle Jensen MD 420 [facility] 396 [place] [address] Assigned Surgical Provider 01/13/25 Miller Barber MD 420 [facility] 295 [place], [place] [address] Assigned Neuroscience Provider 06/12/25 documented as of this encounter
--- OUTSIDE RECORDS SUMMARY | 2025-08-17 13:45 | XMS_ITS | Encounter Summary ---
Author Organization [place] Address [address] [place] [address]. [place] [address] Care Team Providers Care Dye Automation Operator Name Role Phone Dipti Pulliam Primary Care Provider [phone] Hugo Schmitt MD Unavailable [phone] Shanelle Jensen MD Unavailable Miller Barber MD Unavailable [phone] Encounter Details Date Type Department Care Team (Latest Contact Info) Description 07/16/2025 Travel Social History Tobacco Use Types Packs/Day Years [...] Sex Assigned at Female 10/14/2019 7:59 PM PRINCIPAL AUTOMATION ENGINEER Legal Sex Female 5:09 AM PRINCIPAL AUTOMATION ENGINEER Gender Identity Female 10/14/2019 7:59 PM PRINCIPAL AUTOMATION ENGINEER Sexual Orientation Straight 10/14/2019 7: 59 PM PRINCIPAL AUTOMATION ENGINEER documented as of this encounter Plan of Treatment Upcoming Encounters Date Type Department Care Team (Late st Contact Info) Description 09/24/2025 11:00 AM PRINCIPAL AUTOMATION ENGINEER Ancillary Procedure M [facility] Imaging Center MRI [address] [place] [address] Dragan Barrett MD [address] [place] [address]955 09/24/2025 12:30 PM PRINCIPAL AUTOMATION ENGINEER Office Visit M [facility] Neurosurgery Clinic [address] [place] [phone] Dragan Barrett MD [address] [place] [address] 880155 11/06/2025 3:30 PM PRINCIPAL AUTOMATION ENGINEER Office Visit M [facility] Epilepsy Care [address] [facility], [address] [place] [phone] Miller Barber MD 420 [facility] 295 [place], [place] [address] documented as of this encounter Visit Diagnoses Not on filedocumented in this encounter Care Teams Dye Automation Operator Relationship Specialty Start Date End Date Dipti Pulliam PCP - General Family Practice 10/02/19 Hugo Schmitt MD [address] [place] [address] 237795 Ophthalmology 01/25/24 Shanelle Jensen MD [address] [facility] 396 [place] [address] Assigned Surgical Provider 01/13/25 Miller Barber MD 420 [facility] 295 [place], [place] [address] Assigned Neuroscience Provider 06/12/25 documented as of this encounter
--- OUTSIDE RECORDS SUMMARY | 2025-08-17 13:45 | XMS_ITS | Encounter Summary ---
Author Organization [place] Address [address] [place] [address]. [place] [address] Care Team Providers Care Delinquency Prevention Officer Name Role Phone Dipti Pulliam Primary Care Provider [phone] Dragan Barrett MD Unavailable + Hugo Schmitt MD Unavailable [phone] Hugo Schmitt MD Unavailable [phone] DarrenShanelle Rasheed MD Unavailable Miller Barber MD Unavailable [phone] Encounter Details Date Type Department Care Team (Late st Contact Info) Description 12/07/2024 [facility] Medical Advice [facility] [place] 801759 [facility] [address] 5[address] [place] [address] Grisel Brown, RN Social History Tobacco Use Types Packs/Day [...] Sex Assigned at Female 10/14/2019 7:59 PM MANAGER LEASING Legal Sex Female 5:09 AM MANAGER LEASING Gender Identity Female 10/14/2019 7:59 PM MANAGER LEASING Sexual Orientation Straight 10/14/2019 7: 59 PM MANAGER LEASING documented as of this encounter Plan of Treatment Upcoming Encounters Date Type Department Care Team (Late st Contact Info) Description 09/24/2025 11:00 AM MANAGER LEASING Ancillary Procedure M [facility] Imaging Center MRI [address] [place] [address] Dragan Barrett MD [address] [place] [address] 726995 09/24/2025 12:30 PM MANAGER LEASING Office Visit M [facility] Neurosurgery Clinic [address] [place] [phone] Dragan Barrett MD [address] [place] [address] [phone] 11/06/2025 3:30 PM MANAGER LEASING Office Visit M [facility] Epilepsy Care [address] [facility], [address] [place] [phone] Miller Barber MD [address] [place] [address] 295 [place], [place] [address]605 documented as of this encounter Visit Diagnoses Not on filedocumented in this encounter Care Teams Delinquency Prevention Officer Relationship Specialty Start Date End Date Dipti Pulliam PCP - General Family Practice 10/02/19 Dragan Barrett MD [address] [place] [address] 811675 Assigned Neuroscience Provider 09/12/20 06/11/25 Hugo Schmitt MD 516 [place], [place] 6738[address] MD Ophthalmology 01/25/24 Hugo Schmitt MD [address] [place] [address] 300 [place], [place] 7[address]334 Assigned Surgical Provider 04/12/24 01/12/25 Shanelle Jensen MD 420 [facility] 396 [place] [address] Assigned Surgical Provider 01/13/25 Miller Barber MD 420 [facility] 295 [place] [address] Assigned Neuroscience Provider 06/12/25 documented as of this encounter
--- OUTSIDE RECORDS SUMMARY | 2025-08-17 13:45 | XMS_ITS | Encounter Summary ---
Author Organization [place] Address [address] [place] [address]. [place] [address] Care Team Providers Care Snow Blower Name Role Phone Dipti Pulliam Primary Care Provider Dragan Barrett MD Unavailable + Hugo Schmitt MD Unavailable [phone] Hugo Schmitt MD Unavailable + [phone] DarrenShanelle Rasheed MD Unavailable Miller Barber MD Unavailable [phone] Encounter Details Date Type Department Care Team (Late st Contact Info) Description 12/21/2023 [facility] Medical Advice [facility] [address] 3rd [place] [address] Dragan Barrett MD [address] [place] [address] Social History Tobacco Use Types Packs/Day Years Used Date Smoking Tobacco: Never Smokeless Tobacco: Never Alcohol Use Standard Drinks/Week Comments Yes 0 (1 standard drink = 0.6 oz pur e alcohol) 3/wk PHQ-2 Answer Date Recorded PHQ-2 Score 0 12/13/2023 Adolescent Education Answer Date Record ed Getting School Help Needed Not on file 09/06 Comments No Sex and Gender Information Value Date Recorded Sex Assigned at Female 10/14/2019 7:59 PM WOODWORKING MACHINE SETTER Legal Sex Female 5:09 AM WOODWORKING MACHINE SETTER Gender Identity Female 10/14/2019 7:59 PM WOODWORKING MACHINE SETTER Sexual Orientation Straight 10/14/2019 7: 59 PM WOODWORKING MACHINE SETTER documented as of this encounter Plan of Treatment Upcoming Encounters Date Type Department Care Team (Late st Contact Info) Description 09/24/2025 11:00 AM WOODWORKING MACHINE SETTER Ancillary Procedure [facility] MRI [address] [place] [phone] Dragan Barrett MD [address] [place] [address] 871735 09/24/2025 12:30 PM WOODWORKING MACHINE SETTER Office Visit [facility] [address]rd [place] [address] Dragan Barrett MD [address] [place] [address] 760965 11/06/2025 3:30 PM WOODWORKING MACHINE SETTER Office Visit [facility] Ep[facility]psy Care [address], [address] [place] [phone] Miller Barber MD 420 [facility] 295 [place], [place] 6[address] documented as of this encounter Visit Diagnoses Not on filedocumented in this encounter Care Teams Snow Blower Relationship Specialty Start Date End Date Dipti Pulliam PCP - General Family Practice 10/02/19 Dragan Barrett MD 909 [place] [address] Assigned Neuroscience Provider 09/12/20 06/11/25 Hugo Schmitt MD 516 [place] [address] MD Ophthalmology 01/25/24 Hugo Schmitt MD [address] [place] [address] 300 [place] [address] Assigned Surgical Provider 04/12/24 01/12/25 Shanelle Jensen MD 420 [facility] 396 [place], [place] 97[address] Assigned Surgical Provider 01/13/25 Miller Barber MD 420 [facility] 295 [place], [place] 8[address] Assigned Neuroscience Provider 06/12/25 documented as of this encounter
--- OUTSIDE RECORDS SUMMARY | 2025-08-17 13:45 | XMS_ITS | Encounter Summary ---
Author Organization [place] Address [facility] [place] [address] Care Team Providers Care Traveling Nurse Name Role Phone Dipti Pulliam Primary Care Provider [phone] Dragan Barrett MD Unavailable + Hugo Schmitt MD Unavailable [phone] DarrenShanelle Rasheed MD Unavailable Miller Barber MD Unavailable [phone] Encounter Details Date Type Department Care Team (Late st Contact Info) Description 01/22/2025 [facility] [place] 159666 [facility] [address] [place] [phone] Hugo Schmitt MD [address] [address] [place] [address] Social History Tobacco Use Types Packs/Day Years [...] Sex Assigned at Female 10/14/2019 7:59 PM KILN STOKER Legal Sex Female 5:09 AM KILN STOKER Gender Identity Female 10/14/2019 7:59 PM KILN STOKER Sexual Orientation Straight 10/14/2019 7: 59 PM KILN STOKER documented as of this encounter Miscellaneous Notes * Telephone Encounter - Dian Ng - 01/23/2025 8:30 AM CST LVM/My chart for patient to call back to reschedule appointment with Dr. Schmitt .ls01/23/25 per in basket STOKER documented in this encounter Plan of Treatment Upcoming Encounters Date Type Department Care Team (Late st Contact Info) Description 09/24/2025 11:00 AM KILN STOKER Ancillary Procedure [facility] MRI [address] [phone] Dragan Barrett MD [address] [place] [address] 09/24/2025 12:30 PM KILN STOKER Office Visit [facility] [address] 3rd [place] [phone] Dragan Barrett MD [address] [place] [address] 11/06/2025 3:30 PM KILN STOKER Office Visit [facility] [address], [address] [place] [phone] Miller Barber MD [address] [address] documented as of this encounter Visit Diagnoses Not on filedocumented in this encounter Care Teams Traveling Nurse Relationship Specialty Start Date End Date Dipti Pulliam PCP - General Family Practice 10/02/19 Dragan Barrett MD [address] [place] [address] Assigned Neuroscience Provider 09/12/20 06/11/25 Hugo Schmitt MD [address] [place] [address] Ophthalmology 01/25/24 Shanelle Jensen MD [address] 855935 Assigned Surgical Provider 01/13/25 Miller Barber MD [address] [address] Assigned Neuroscience Provider 06/12/25 documented as of this encounter
--- OUTSIDE RECORDS SUMMARY | 2025-08-17 13:45 | XMS_ITS | Encounter Summary ---
Author Organization [place] Address [address] [place] [address]. [place] [address] Care Team Providers Care Tile Sorter Name Role Phone Dipti Pulliam Primary Care Provider [phone] Hugo Schmitt MD Unavailable [phone] Shanelle Jensen MD Unavailable Miller Barber MD Unavailable [phone] Encounter Details Date Type Department Care Team (Latest Contact Info) Description 07/11/2025 Travel Social History Tobacco Use Types Packs/Day [...] Sex Assigned at Female 10/14/2019 7:59 PM BATCH ATTENDANT Legal Sex Female 5:09 AM BATCH ATTENDANT Gender Identity Female 10/14/2019 7:59 PM BATCH ATTENDANT Sexual Orientation Straight 10/14/2019 7: 59 PM BATCH ATTENDANT documented as of this encounter Plan of Treatment Upcoming Encounters Date Type Department Care Team (Late st Contact Info) Description 09/24/2025 11:00 AM BATCH ATTENDANT Ancillary Procedure [facility] MRI [address] [place] [address] Dragan Barrett MD [address] [place] [address] 133215 09/24/2025 12:30 PM BATCH ATTENDANT Office Visit [facility] [address] 3rd [place] [address] Dragan Barrett MD [address] [place] [address] 395465 11/06/2025 3:30 PM BATCH ATTENDANT Office Visit [facility] Ep[facility]psy Care [address] [facility], [address] [place] [phone] Miller Barber MD 420 [facility] 295 [place], [place] 96[address] documented as of this encounter Visit Diagnoses Not on filedocumented in this encounter Care Teams Tile Sorter Relationship Specialty Start Date End Date Dipti Pulliam PCP - General Family Practice 10/02/19 Hugo Schmitt MD [address] [place] [address] 872955 Ophthalmology 01/25/24 Shanelle Jensen MD 420 [facility] 396 [place] [address] Assigned Surgical Provider 01/13/25 Miller Barber MD 420 [facility] 295 [place], [place] 2[address]95 Assigned Neuroscience Provider 06/12/25 documented as of this encounter
--- OUTSIDE RECORDS SUMMARY | 2025-08-17 13:45 | XMS_ITS | Encounter Summary ---
Author Organization [place] Address [address] [place] [address]. [place] [address] Care Team Providers Care Waste Hand Name Role Phone Dipti Pulliam Primary Care Provider [phone] Dragan Barrett MD Unavailable + Hugo Schmitt MD Unavailable [phone] Hugo Schmitt MD Unavailable + [phone] DarrenShanelle Rasheed MD Unavailable Miller Barber MD Unavailable [phone] Encounter Details Date Type Department Care Team (Late st Contact Info) Description 02/02/2024 [facility] Medical Advice [facility] [address] 3rd [place] [address] Jennie Odonnell PAChiragC 909 [place] [address] S/P craniotomy Social History Tobacco Use Types [...] Sex Assigned at Female 10/14/2019 7:59 PM LOGISTICS PLANNING MANAGER Legal Sex Female 5:09 AM LOGISTICS PLANNING MANAGER Gender Identity Female 10/14/2019 7:59 PM LOGISTICS PLANNING MANAGER Sexual Orientation Straight 10/14/2019 7: 59 PM LOGISTICS PLANNING MANAGER documented as of this encounter Plan of Treatment Upcoming Encounters Date Type Department Care Team (Late st Contact Info) Description 09/24/2025 11:00 AM LOGISTICS PLANNING MANAGER Ancillary Procedure [facility] MRI [address] [place] [phone] Dragan Barrett MD [address] [place] [address] 549865 09/24/2025 12:30 PM LOGISTICS PLANNING MANAGER Office Visit [facility] [address]rd [place] [phone] Dragan Barrett MD [address] [place] [address] 432705 11/06/2025 3:30 PM LOGISTICS PLANNING MANAGER Office Visit [facility] Epilepsy Care [address], [address] [place] [address] Miller Barber MD 420 [facility] 295 [place], [place] [address] documented as of this encounter Visit Diagnoses Diagnosis S/P craniotomy Other postprocedural status documented in this encounter Care Teams Waste Hand Relationship Specialty Start Date End Date Heraclio Dipti PCP - General Family Practice 10/02/19 Dragan Barrett MD 909 [place], [place] 144145 Assigned Neuroscience Provider 09/12/20 06/11/25 Hugo Schmitt MD 516 [place], [place] 304715 MD Ophthalmology 01/25/24 Hugo Schmitt MD [address] [facility] 300 [place], [place] 379144 Assigned Surgical Provider 04/12/24 01/12/25 Shanelle Jensen MD 420 [facility] 396 [place] [address] Assigned Surgical Provider 01/13/25 Miller Barber MD 420 [facility] 295 [place], [place] 4130[address] Assigned Neuroscience Provider 06/12/25 documented as of this encounter
--- OUTSIDE RECORDS SUMMARY | 2025-08-17 13:45 | XMS_ITS | Encounter Summary ---
Author Organization [place] Address [address] [place] [address] Care Team Providers Care Health Type Technician Name Role Phone Dipti Pulliam Primary Care Provider [phone] Dragan Barrett MD Unavailable + Hugo Schmitt MD Unavailable [phone] Hugo Schmitt MD Unavailable [phone] DarrenShanelle Rasheed MD Unavailable Miller Barber MD Unavailable [phone] Reason for Visit * Reason Onset Date Comments Patient Request 12/18/2024 Call back Encounter Details Date Type Department Care Team (Late st Contact Info) Description 12/18/2024 Telephone [facility] Neurosurgery Clinic [address] 3rd [place] [address] Dragan Barrett MD [address] [place] [address] Patient Request (Call back ) Social History Tobacco Use Types Packs/Day Years [...] Sex Assigned at Female 10/14/2019 7:59 PM ACCOUNT CLASSIFICATION CLERK Legal Sex Female 5:09 AM ACCOUNT CLASSIFICATION CLERK Gender Identity Female 10/14/2019 7:59 PM ACCOUNT CLASSIFICATION CLERK Sexual Orientation Straight 10/14/2019 7: 59 PM ACCOUNT CLASSIFICATION CLERK documented as of this encounter Miscellaneous Notes * Telephone Encounter - Nannette Doan - 12/18/2024 12:07 PM CST [facility] Phone Message May a detailed message be left on voicemail: yes Reason for Call: Other: Pt is calling and stating that she needs info about her up coming surgery for times for her surgery and her scans. Please call Pt back to discuss. Action Taken: Message routed to[facility] Neurosurgery Travel Screening: Not Applicable Date of Service: UNT CLASSIFICATION CLERK documented in this encounter Plan of Treatment Upcoming Encounters Date Type Department Care Team (Late st Contact Info) Description 09/24/2025 11:00 AM ACCOUNT CLASSIFICATION CLERK Ancillary Procedure [facility] MRI [address] [address] Dragan Barrett MD [address] [place] [address] 848455 09/24/2025 12:30 PM ACCOUNT CLASSIFICATION CLERK Office Visit [facility] Clinic [address] 3rd [place] [phone] Dragan Barrett MD [address] [place] [address] 11/06/2025 3:30 PM ACCOUNT CLASSIFICATION CLERK Office Visit [facility] [address], [address] [place] [address] Miller Barber MD 420 [facility] 295 [place], [place] [address] documented as of this encounter Visit Diagnoses Not on filedocumented in this encounter Care Teams Health Type Technician Relationship Specialty Start Date End Date AmbrosecarlosirmaDipti PCP - General Family Practice 10/02/19 Dragan Barrett MD [address] [place] [address] 227135 Assigned Neuroscience Provider 09/12/20 06/11/25 Hugo Schmitt MD 516 [place], [place] 4698[address] Ophthalmology 01/25/24 Hugo Schmitt MD 701 [facility] [place] [address] [place], [place] [address] Assigned Surgical Provider 04/12/24 01/12/25 Shanelle Jensen MD 420 [facility] 396 [place], [place] 2220[address] Assigned Surgical Provider 01/13/25 Miller Barber MD [address] [place] [address] 295 [place] [address] Assigned Neuroscience Provider 06/12/25 documented as of this encounter
--- OUTSIDE RECORDS SUMMARY | 2025-08-17 13:45 | XMS_ITS | Encounter Summary ---
Author Organization [place] Address [address] [place] [address]. [place] [address] Care Team Providers Care Sample Sawyer Name Role Phone Dipti Pulliam Primary Care Provider [phone] Hugo Schmitt MD Unavailable [phone] Shanelle Jensen MD Unavailable Miller Barber MD Unavailable [phone] Encounter Details Date Type Department Care Team (Late st Contact Info) Description 07/19/2025 Results [facility] [address], [address] [place] [address] Miller Barber MD 420 [facility] 295 [place] [address] Subj: Message about your results Social History Tobacco Use Types Packs/Day Years [...] Assigned at Female 10/14/2019 7:59 PM DIRECTOR RELIGIOUS EDUCATION Legal Sex Female 5:09 AM DIRECTOR RELIGIOUS EDUCATION Gender Identity Female 10/14/2019 7:59 PM DIRECTOR RELIGIOUS EDUCATION Sexual Orientation Straight 10/14/2019 7: 59 PM DIRECTOR RELIGIOUS EDUCATION documented as of this encounter Plan of Treatment Upcoming Encounters Date Type Department Care Team (Late st Contact Info) Description 09/24/2025 11:00 AM DIRECTOR RELIGIOUS EDUCATION Ancillary Procedure [facility] Imaging Center MRI [address] [phone] Dragan Barrett MD [address] [place] [address] 440825 09/24/2025 12:30 PM DIRECTOR RELIGIOUS EDUCATION Office Visit [facility] Neurosurgery Clinic [address] 3rd [place] [address] Dragan Barrett MD [address] [place] [address] 708335 11/06/2025 3:30 PM DIRECTOR RELIGIOUS EDUCATION Office Visit [facility] [address], [address] [place] [address] Miller Barber MD [address] [place] [address] 295 [place], [place] [address] documented as of this encounter Visit Diagnoses Not on filedocumented in this encounter Care Teams Sample Sawyer Relationship Specialty Start Date End Date Dipti Pulliam PCP - General Family Practice 10/02/19 Hugo Schmitt MD 516 [place] [address] Ophthalmology 01/25/24 DarrenShanelle Rasheed MD 420 [facility] 396 [place] [address] Assigned Surgical Provider 01/13/25 Miller Barber MD 420 [facility] 295 [place] [address] Assigned Neuroscience Provider 06/12/25 documented as of this encounter
--- OUTSIDE RECORDS SUMMARY | 2025-08-17 13:45 | XMS_ITS | Encounter Summary ---
Author Organization [place] Address [address] [place] [address]. [place] [address] Care Team Providers Care Cocoa Press Operator Name Role Phone Dipti Pulliam Primary Care Provider Hugo Schmitt MD Unavailable + [phone] Shanelle Jensen MD Unavailable Miller Barber MD Unavailable [phone] Encounter Details Date Type Department Care Team (Late st Contact Info) Description 08/13/2025 Telephone [facility] Clinic [address] 3rd [place] [address] Chary Pacheco RN Social History Tobacco Use Types Packs/Day [...] Sex Assigned at Female 10/14/2019 7:59 PM INSPECTOR BALANCE BRIDGE Legal Sex Female 5:09 AM INSPECTOR BALANCE BRIDGE Gender Identity Female 10/14/2019 7:59 PM INSPECTOR BALANCE BRIDGE Sexual Orientation Straight 10/14/2019 7: 59 PM INSPECTOR BALANCE BRIDGE documented as of this encounter Miscellaneous Notes * Telephone Encounter - Chary Pacheco RN - 08/13/2025 3:21 PM CDT Callback to patient, understanding she does not want to move up MRI as going on a camping trip to . Be sure to seek medical attention for any seizure type issues, severe headache, sudden vision change, any cognitive change. Please call back if I can help move the MRI up a week or so. Thank you Chary RN [phone] * Telephone Encounter - Chary Pacheco RN - 08/13/2025 1:28 PM CDT Spoke with Trevor regarding trying to move up MRI Brain and OV with RT per request from Jennie Odonnell NP Addendum 08/09/25: Late entry: Patient states leaving on a camping trip Tuesday for 2 weeks returning 09/04/25. Patient blames seizure activity from getting flu and covid vaccines on the same day, itwas the day prior to procedure. Explained can not verify cause of seizure. Patient prefers to keep things as scheduled for 09/24 unless Provider would like to try and change Voices understanding. documented in this encounter Plan of Treatment Upcoming Encounters Date Type Department Care Team (Late st Contact Info) Description 09/24/2025 11:00 AM INSPECTOR BALANCE BRIDGE Ancillary Procedure M [facility] Imaging Center MRI [address] [place] [phone] Dragan Barrett MD [address] [place] [address] 937595 09/24/2025 12:30 PM INSPECTOR BALANCE BRIDGE Office Visit M [facility] Neurosurgery Clinic [address]rd [place] [phone] Dragan Barrett MD [address] [place] [address] 248485 11/06/2025 3:30 PM INSPECTOR BALANCE BRIDGE Office Visit M [facility] [address], [address] [place] [address] Miller Barber MD [address] [place] [address] 780165 documented as of this encounter Visit Diagnoses Not on filedocumented in this encounter Care Teams Cocoa Press Operator Relationship Specialty Start Date End Date Dipti Pulliam PCP - General Family Practice 10/02/19 Hugo Schmitt MD [address] [place] [address] 830415 Ophthalmology 01/25/24 Shanelle Jensen MD 420 [facility] 396 [place], [place] [address] Assigned Surgical Provider 01/13/25 Miller Barber MD 420 [facility] 295 [place], [place] [address] Assigned Neuroscience Provider 06/12/25 documented as of this encounter
--- OUTSIDE RECORDS SUMMARY | 2025-08-17 13:45 | XMS_ITS | Encounter Summary ---
Author Organization [place] Address [address] [place] [address]. [place] [address] Care Team Providers Care Binder Lockstitch Name Role Phone Dipti Pulliam Primary Care Provider [phone] Dragan Barrett MD Unavailable + Hugo Schmitt MD Unavailable + [phone] Hugo Schmitt MD Unavailable + [phone] Darren-Shanelle Rasheed MD Unavailable Miller Barber MD Unavailable [phone] Encounter Details Date Type Department Care Team (Late st Contact Info) Description 04/06/2024 [facility] [address] [phone] Ro Arnold Social History Tobacco Use Types [...] Sex Assigned at Female 10/14/2019 7:59 PM MASCARA MOLDER Legal Sex Female 5:09 AM MASCARA MOLDER Gender Identity Female 10/14/2019 7:59 PM MASCARA MOLDER Sexual Orientation Straight 10/14/2019 7: 59 PM MASCARA MOLDER documented as of this encounter Plan of Treatment Upcoming Encounters Date Type Department Care Team (Late st Contact Info) Description 09/24/2025 11:00 AM MASCARA MOLDER Ancillary Procedure M [facility] Imaging Center MRI [address] [place] [phone] Dragan Barrett MD [address] [place] [address] 209665 09/24/2025 12:30 PM MASCARA MOLDER Office Visit M [facility] Neurosurgery Clinic [address]rd [place] [phone] Dragan Barrett MD [address] [place] [address] 358585 11/06/2025 3:30 PM MASCARA MOLDER Office Visit M [facility] [place] Epilepsy [facility] [address] [facility], [address] [place] [address] Miller Barber MD [address] [place] [address] 295 [place], [place] 39[address] documented as of this encounter Visit Diagnoses Not on filedocumented in this encounter Care Teams Binder Lockstitch Relationship Specialty Start Date End Date Dipti Pulliam PCP - General Family Practice 10/02/19 Dragan Barrett MD [address] [place] [address] 150415 Assigned Neuroscience Provider 09/12/20 06/11/25 Hugo Schmitt MD 516 [place], [place] 2916[address] MD Ophthalmology 01/25/24 Hugo Schmitt MD [address] [place] [address], [email or web address] 300 [place], [place] 6332[address] Assigned Surgical Provider 04/12/24 01/12/25 Shanelle Jensen MD 420 [facility] 396 [place], [place] [address] Assigned Surgical Provider 01/13/25 Miller Barber MD 420 [facility] 295 [place] [address] Assigned Neuroscience Provider 06/12/25 documented as of this encounter
--- OUTSIDE RECORDS SUMMARY | 2025-08-17 13:46 | XMS_ITS | Encounter Summary ---
Author Organization [facility] Address [address] [place] [address]. [place] [address] Care Team Providers Care Evp Managing Director Name Role Phone Dipti Pulliam Primary Care Provider [phone] Dragan Barrett MD Unavailable + Hugo Schmitt MD Unavailable [phone] Hugo Schmitt MD Unavailable +[phone] [facility] Unavailable Miller Barber MD Unavailable [phone] Encounter Details Date Type Department Care Team (Late st Contact Info) Description 12/07/2024 [facility] Medical Advice [facility] [address], [address] [place] [address] Miller Barber MD [address] [place] [address] [address] [place], [place] [id number] Social History Tobacco Use Types Packs/Day Years [...] Sex Assigned at Female 10/14/2019 7:59 PM [employer] Legal Sex Female 5:09 AM [employer] Gender Identity Female 10/14/2019 7:59 PM [employer] Sexual Orientation Straight 10/14/2019 7: 59 PM [employer] documented as of this encounter Plan of Treatment Upcoming Encounters Date Type Department Care Team (Late st Contact Info) Description 09/24/2025 11:00 AM [employer] Ancillary Procedure [facility] MRI [address] [place] [phone] Dragan Barrett MD [address] [place] [id number] 09/24/2025 12:30 PM [employer] Office Visit [facility] [address] [place] [phone] Dragan Barrett MD [address] [place] [address] [phone] 11/06/2025 3:30 PM [employer] Office Visit [facility] [address], [address] [place] [address] Miller Barber MD [address] [place] [address] [address] [place], [place] [phone] documented as of this encounter Visit Diagnoses Not on filedocumented in this encounter Care Teams Evp Managing Director Relationship Specialty Start Date End Date Dipti Pulliam PCP - General Family Practice 10/02/19 Dragan Barrett MD [address] [place] [address] Assigned Neuroscience Provider 09/12/20 06/11/25 Hugo Schmitt MD [address] [place] [address] MD Ophthalmology 01/25/24 Hugo Schmitt MD [address] [place] [address] [address] [place] [address] Assigned Surgical Provider 04/12/24 01/12/25 Shanelle Jensen MD [address] [facility] [address] [place], [place] [id number] Assigned Surgical Provider 01/13/25 Miller Barber MD [address] [facility] [address] [place], [place] [address] Assigned Neuroscience Provider 06/12/25 documented as of this encounter
== END 2025-08-17 14:58 | disposition home or self-care (01) ==
PROVIDERS: Emergency Provider Emergency Medicine Emergency Medical Services; PCP Family Medicine
DX: M25.561 Pain in right knee (principal)
CPT/HCPCS: 73562; 99283; 99284